=== PATIENT | male | born 1965 | race Caucasian/White ===

== ENCOUNTER 2021-07-24 18:46 | Emergency (ER) | payer OTHER, SELFPAY ==
[2021-07-24 18:47] VITALS: BP 153/88; PULSE 108; RESP 18; TEMP 35.9; O2SAT 97; BMI 32.9
--- NOTE | 2021-07-24 19:19 | RAD_ITS ---
STUDY: X-RAY - LEFT TIBIA AND FIBULA REASON FOR EXAM: Male, 55 years old. Wound to anterior leg worsened since Tuesday, fracture and surgery in April. TECHNIQUE: 4 view(s) of the tibia and fibula were obtained. COMPARISON: None. FINDINGS: Subacute actively healing fracture of the distal one third tibial shaft and fibula noted. Intramedullary juanito of the tibial shaft noted with interlocking screws. No visualized cortical erosion or bony destruction to suggest osteomyelitis. Mild soft tissue swelling is present around the lower leg. RAD/Tibia & Fibula 2 Views IMPRESSION: Subacute fractures of the tibia and fibula. Electronically Signed: Lex Paige MD at 21:36 EDT , Service support ,
[2021-07-24] MEDS: Cefazolin 1 GM/50 ML BAG IV (19:45)
[2021-07-24 19:49] VITALS: BP 153/88; PULSE 108; RESP 18; TEMP 35.9; O2SAT 97
[2021-07-24 20:00] LABS: Absolute Lymphocyte Count 2.33 X10^3/uL (0.83-4.51); Absolute Neutrophil Count 11.3 X10^3/uL (2.0-7.7); Anion Gap 8 (5-15); BUN 18 mg/dL (7-18); BUN/Creat Ratio 15.8 RATIO (10-20); Basophil# 0.08 X10^3/uL; Basophil% 0.5 % (0-1); Calcium,Total 9.3 mg/dL (8.5-10.1); Chloride 100 mmol/L (98-107); Creatinine, Serum 1.14 mg/dL (0.70-1.30); EST Glomerular Filtration Rate 70 mL/min (>60); Eosinophil# 0.63 X10^3/uL; Eosinophils% 4.1 % (0-5); Est Glom Filt Rate - Afr Amer 85 mL/min (>60); Glucose 164 mg/dL (74-106); Hematocrit 41.7 % (40-54); Hemoglobin 13.4 g/dL (13.0-16.5); Lymphocyte # 2.33 X10^3/ul (0.83-4.51); Lymphocyte % 15.2 % (19-41); Mean Corp Hgb Conc 32.1 g/dL (32-36); Mean Corpuscular Hgb 26.1 pg (27.0-32.0); Mean Corpuscular Volume 81.1 fL (80-94); Mean Platelet Vol. 9.8 fl (6.2-12.0); Monocyte# 0.93 X10^3/uL; Monocyte% 6.1 % (0-10); NRBC Flagged by Analyzer 0 % (0-5); Neutrophil # 11.27 X10^3/uL (2.7-7.7); Neutrophil % 73.6 % (47-70); Platelet Count 353 K/mm3 (150-450); Potassium 3.4 mmol/L (3.5-5.1); RBC Distribution Width CV 12.9 % (11.6-14.6); RBC Distribution Width SD 38.2 fl (35.1-43.9); Red Blood Count 5.14 M/mm3 (4.6-6.2); Sodium Level 138 mmol/L (136-145); White Blood Count 15.3 K/mm3 (4.4-11.0)
--- NOTE | 2021-07-24 20:19 | EX.ED.DYSGE1 ---
HPI History of Present Illness Chief Complaint: Wound Narrative Narrative: Presents here with daughter for evaluation for wound check left lower leg. Open compound fracture this past April falling off a ladder, surgery by Dr. Patel in [employer]. His last follow-up with July 05 of this month. It was healing appropriately with scabbing, reported however he was empirically placed on a 10-day course of doxycycline during that visit. He finished this. Patient reports the open wound was allowed to heal by secondary intention. There was swelling around the tissue with therapy where it was massaged a week ago. Reports since then increasing blisters there has been serosanguineous drainage in the wound regions. Daughter had pictures of the wounds over the past week. 2 days ago reviewed. To have significant erythema ecchymosis which compared to today improving. There is a blister on the bottom. They followed up with the PCP a few days ago, referred to [facility] however told would not bill get in until late next week. Patient prediabetic. Denies fevers. Denies exudative drainage. Reported pictures were texted to the physician today and was told to come to the hospital. [facility] Medical History HLD (hyperlipidemia) HTN (hypertension) Home Medications amlodipine 07/24/21 [History Last Taken Unknown] amoxicillin-pot clavulanate [Augmentin] 1 tab PO BID #20 tab 07/24/21 [Rx Last Taken Unknown] aspirin 325 mg PO DAILY 07/24/21 [History Last Taken Unknown] doxycycline hyclate 100 mg PO BID 07/24/21 [History Last Taken Unknown] naproxen sodium [Aleve] 440 mg PO BID 07/24/21 [History Last Taken Unknown] oxycodone 5 mg PO Q6H PRN 3 Days #12 tab 07/24/21 [Rx Last Taken Unknown] rosuvastatin 07/24/21 [History Last Taken Unknown] triamterene-hydrochlorothiazid 1 tab PO DAILY 07/24/21 [History Last Taken Unknown] Allergy/AdvReac Type Severity Reaction Status Date / Time acetaminophen [From Percocet] AdvReac Other Verified 07/24/21 19:23 oxycodone [From Percocet] AdvReac Other Verified 07/24/21 19:23 Surgical History History of cholecystectomy History of fusion of cervical spine History of meniscectomy of left knee History of meniscectomy of right knee Social History Smoking Status: Never smoker ROS ROS ED Constitutional Constitutional ED: Denies chills, fever(s) or sweats Eyes Eyes: Denies change in vision ENT ENT ED: Denies dysphagia or sore throat Cardiovascular Cardiovascular: Denies chest pain, leg edema, palpitations or racing heartbeat Respiratory/Chest Respiratory/Chest: Denies cough, dyspnea or dyspnea on exertion Gastrointestinal Gastrointestinal: Denies abdominal pain, diarrhea, nausea or vomiting Genitourinary Genitourinary ED: Denies dysuria, hematuria or urinary frequency Musculoskeletal Musculoskeletal: Denies back pain, extremity pain or neck pain Integumentary Reports other Details: Wound left lower leg ; Denies rash or wounds Neurologic Neurologic: Denies headache(s), paresthesias or weakness EXAM Physical Exam Const Vital Signs: 07/24/21 18:47 07/24/21 19:49 07/24/21 20:49 Temperature 96.6 F L 96.6 F L Temperature Source Temporal Temporal Pulse Rate 108 H 108 H 96 Respiratory Rate 18 18 Blood Pressure 153/88 H 153/88 H 132/80 H Blood Pressure Mean 109 109 Pulse Ox 97 97 Oxygen Delivery Method Room Air Room Air Positive well nourished and well developed General Appearance ED: well developed and NAD HEENT Reports moist mucous membranes normocephalic and atraumatic Eyes PERRL, EOMs intact bilaterally and conjunctivae normal General Eye ED: Yes normal appearance of both eyes Neck no lymphadenopathy and supple General: Negative for tenderness Chest Wall Chest: Negative for tenderness Resp normal respiratory effort and normal air movement Effort and Inspection: symmetric chest movement; Negative for respiratory distress Cardio regular rate, regular rhythm and no murmurs Peripheral Pulses: pulses 2+ throughout GI normal to inspection, nondistended, normoactive bowel sounds and non-tender Palpation: Negative for guarding or rebound tenderness present Back/Spine no CVA tenderness and no thoracic nor lumbar tenderness Extremity normal to inspection General Extremety ED: Negative for edema or tenderness General Extremity: Negative for edema Neuro oriented x3 and no sensory deficits noted Sensorium / Orientation: awake and alert Skin Skin Narrative: Left lower extremity: Distal medial aspect of the leg, palm-sized erythema ecchymosis in the middle, there were 2 circular open wounds on top 1 was 1.5 cm the other is 1 cm with serosanguineous drainage. There is a 2 cm close blistering on the lower aspect of the wound. There was no exudative drainage. There is no streaking. Nontender to palpation. There is no crepitus. MDM MDM MDM Narrative Medical decision making narrative: Patient nontoxic appears to have an reinfection that is actually better than from pictures 2 days ago. I did check labs white count returned at 15. He was given IV Ancef. Without exudates lower suspicion for MRSA. Erythema was outlined. Wound was cleansed and dressed with Xeroform by nursing. Discussed wound care with patient and daughter. Given prescription for Augmentin for coverage. He will follow-up with wound care and his physicians. Return precautions discussed. All questions were answered. Lab Data Attestation: I reviewed the patient's lab results. Labs: Laboratory Results - last 24 hr 07/24/21 07/24/21 19:38 19:38 WBC 15.3 H RBC 5.14 Hgb 13.4 Hct 41.7 MCV 81.1 MCH 26.1 L MCHC 32.1 RDW Std Deviation 38.2 RDW Coeff of Darren 12.9 Plt Count 353 MPV 9.8 Immature Gran % (Auto) 0.500 Neut % (Auto) 73.6 H Lymph % (Auto) 15.2 L [place] % (Auto) 6.1 Eos % (Auto) 4.1 Baso % (Auto) 0.5 Absolute Neuts (auto) 11.3 H Absolute Lymphs (auto) 2.33 Nucleated RBC % 0 Sodium 138 Potassium 3.4 L Chloride 100 Carbon Dioxide 30.0 Anion Gap 8 BUN 18 Creatinine 1.14 Estim Creat Clear Calc 90.10 Est GFR (MDRD) Af Amer 85 Est GFR (MDRD) Non-Af 70 BUN/Creatinine Ratio 15.8 Glucose 164 H Calcium 9.3 Radiography Chest X-Ray - ED: Read by ED Physician and Read by Radiologist Diagnostic Testing: Clinical Impression(s) from Imaging Studies Tibia/Fibula X-Ray 07/24/21 19:19 IMPRESSION: Subacute fractures of the tibia and fibula. Electronically Signed: Lex Paige MD at 21:36 EDT , Service support , Discharge Plan Triage Chief Complaint: Wound ED Provider: David Narvaez Dx/Rx/DC Orders Clinical Impression: Postoperative wound infection, Cellulitis of left leg Instructions: ED Cellulitis, ED Wound Infection after surgery Prescriptions: New amoxicillin-pot clavulanate [Augmentin] 875-125 mg tablet 1 tab PO BID Qty: 20 RF: 0 oxycodone 5 mg tablet 5 mg PO Q6H PRN (Reason: pain) 3 Days Qty: 12 RF: 0 No Action aspirin 325 mg Tablet 325 mg PO DAILY RF: 0 triamterene-hydrochlorothiazid 75-50 mg Tablet 1 tab PO DAILY RF: 0 doxycycline hyclate 100 mg Tablet 100 mg PO BID RF: 0 naproxen sodium [Aleve] 220 mg Capsule 440 mg PO BID RF: 0 amlodipine RF: 0 rosuvastatin RF: 0 Primary Care Provider: Pelon Linda Referrals: Pelon Linda MD [Primary Care Provider] - Activity Restrictions/Additional Instructions: Take antibiotic as prescribed. Follow-up with [facility] . Disposition Disposition: Home, Self Care Discharge Date/Time: 07/24/21 20:54
[2021-07-24] MEDS: oxyCODONE 5 MG Tablet PO (20:45)
[2021-07-24 20:49] VITALS: BP 132/80; PULSE 96
== END 2021-07-24 20:54 | disposition home or self-care (01) ==
PROVIDERS: Emergency Provider Emergency Medicine; PCP Family Medicine
DX: T81.49XA Infection following a procedure, other surgical site, initial encounter (principal); L03.116 Cellulitis of left lower limb; I10 Essential (primary) hypertension; E78.5 Hyperlipidemia, unspecified; Z79.82 Long term (current) use of aspirin; Z79.899 Other long term (current) drug therapy
CPT/HCPCS: 73590; 80048; 85025; 96365; 99284; J7050; A4216

== ENCOUNTER 2021-07-29 07:55 | Outpatient (RCR) | payer OTHER, SELFPAY ==
[2021-07-29 08:13] VITALS: BP 153/78; PULSE 106; TEMP 35.7
--- NOTE | 2021-07-29 10:14 | HP.PCM_ITS ---
History of Present Illness Date of Service: 07/29/21 Chief Complaint: Follow-up on left lower leg open wounds History of Wound: 55-year-old black male who approximately on April 03 fell down a ladder trimming trees and had a compound fracture to the left lower leg. Patient had surgery and a juanito was placed from knee to ankle area. Patient appeared to be healing well had second-degree healing on the lower part of his leg the rest of the leg was closed with juan. Was in physical therapy and was receiving massage therapy to get rid of the edema and keloiding of some of his wounds and went home 1 day and his skin started to open and has now developed like 3 bulbar type protruding mass of skin and the area is very red and warm. Went to the emergency room after seeing his primary care doctor and they placed him on a doxycycline drip and send him home on amoxicillin. Patient then was then referred to wound center for further treatment. The surgeon states that there was a lot of debris in his leg of wood and sticks and grass. That he thought he got most of it out but, it could be foreign bodies trying to work their way out. [facility] Medical History (Reviewed 07/29/21 @ 10:18 by Kami Fletcher [employer], [employer]) HLD (hyperlipidemia) HTN (hypertension) Home Medications amlodipine 07/24/21 [History Last Taken Unknown] amoxicillin-pot clavulanate [Augmentin] 1 tab PO BID #20 tab 07/24/21 [Rx Last Taken Unknown] aspirin 325 mg PO DAILY 07/24/21 [History Last Taken Unknown] doxycycline hyclate 100 mg PO BID 07/24/21 [History Last Taken Unknown] naproxen sodium [Aleve] 440 mg PO BID 07/24/21 [History Last Taken Unknown] rosuvastatin 07/24/21 [History Last Taken Unknown] triamterene-hydrochlorothiazid 1 tab PO DAILY 07/24/21 [History Last Taken Unknown] Allergy/AdvReac Type Severity Reaction Status Date / Time acetaminophen [From Percocet] AdvReac Other Verified 07/24/21 19:23 oxycodone [From Percocet] AdvReac Other Verified 07/24/21 19:23 Surgical History History of cholecystectomy History of fusion of cervical spine History of meniscectomy of left knee History of meniscectomy of right knee Social History Smoking Status: Never smoker ROS Integumentary Integumentary: Reports non-healing lesions, rash, skin pain, skin swelling and wounds Vital Signs Vital Signs Vital Signs: 07/29/21 08:13 Temperature 96.2 F L Temperature Source Temporal Pulse Rate 106 H Blood Pressure 153/78 H Blood Pressure Mean 103 Blood Pressure Source Monitor Blood Pressure Position Sitting Blood Pressure Location Left Arm Physical Exam Const oriented x3 General Appearance: cooperative Exam Limitations: no limitations HEENT normocephalic Head and Scalp: normal to inspection Face and Sinus: normal facial exam Nose: external nose normal General Ear: hearing grossly impaired External Ear: external ears normal Mouth: oral and palatal mucosa normal Eyes PERRL General Eye: normal appearance of both eyes Neck full ROM General: normal visual inspection Resp normal respiratory effort Effort and Inspection: able to speak in complete sentences Auscultation: clear to auscultation bilaterally Cardio regular rate and regular rhythm Palpation: normal PMI Rate: regular rate Rhythm: regular rhythm GI Auscultation: normoactive bowel sounds Palpation: soft and no hepatosplenomegaly Extremity normal to inspection General Extremity: normal exam except as noted Skin General Skin Exam: erythema and hypertrophy Rashes: rashes noted Wounds: wounds noted Wound Narrative: Bulbous protrusions of subcutaneous skin protruding out 3 di fferent areas Neuro oriented x3 Psych Appearance: grossly normal Speech: normal speech Thought Content: normal thought content Judgement: judgement good Debridement Note Debridement Note Wound debrided: Left lower leg cluster Laterality: Left Type of Debridement: Excisional debridement Anesthesia Used: 5% Lidocaine Gel Depth: in the subcutaneous layer Percentage of wound debrided: 100 Instrument Used: 7mm curette and - (Scissors) Tissue Removed: Devitalized tissue fibrin Severity: Fat Layer Exposed Amount of bleeding with debridement: Mild Bleeding Controlled with: Compression and gauze Patient tolerated procedure: Patient tolerated procedure well Post-Debridement Measurements and Additional Note: Post-Debridement Measurements/Treatment WC - Nurse 1 - General Ulcer Assessment Start: 07/29/21 08:12 Freq: Status: Active Protocol: KRISTI Activity Type Activity Date Activity User E-Sign Co-Sign Detail Recorded Client Recorded Date Recorded By Document 07/29/21 08:13 ARMANDO [id number] 07/29/21 08:29 07/29/21 08:13 - Today's Visit Information Type of service Initial Visit Arrival Mode Ambulatory, Crutches Patient Identification Verified (Name & Yes ) Vital Signs Temperature (97.8 F-99.1 F) 96.2 F L Temperature Source Temporal Pulse Rate (60-100) 106 H Pulse Location Monitor Blood Pressure (90/60-120/80) 153/78 H Blood Pressure Mean 103 Source Monitor Position Sitting Blood Pressure Location Left Arm History Since Last Visit- (Skip if this is Patient's initial visit) Have you changed medications since your No last visit? Any new allergies or adverse reactions No Had a fall/change in ADL's that may No increase risk of falls Signs or symptoms of abuse and/or No neglect since last visit Have you been in the hospital since your No last visit? Has dressing in place as prescribed No Has compression in place as prescribed N/A Has offloadiing in place as prescribed N/A Experienced any changes in pain level or No management Left Footwear Regular Shoe Right Footwear Regular Shoe Pain Scale: 0-10 Numeric Is Patient Pain Free? Yes - Nurse 1 - General Ulcer Measurement Start: 07/29/21 08:12 Freq: Status: Active Protocol: Activity Type Activity Date Activity User E-Sign Co-Sign Detail Recorded Client Recorded Date Recorded By Document 07/29/21 08:13 ARMANDO [id number] 07/29/21 08:29 07/29/21 08:13 Wound Center Nurse 1 #1 Left Lower medial extremity cluster -Current Size (cm) - Length 7 -Current Size (cm) - Width 4.8 -Current Size (cm) - Depth 0.1 -Total Square Cm 33.6 -Exudate Amt Medium -Exudate Type Serosanguineous -Wound Margin Distinct, Outline Attached -Granulation Amt Medium (34-66%) -Granulation Quality Red -Necrosis Amt Medium (34-66%) -Necrotic Tissue Type Adherent Slough -Texture (Shaina-wound Skin Appearance) Assessed, Localized Edema ,Scarring -Moisture (Shaina-wound Skin Appearance) Assessed, Maceration -Color (Shaina-wound Skin Appearance) No Abnormality, Assessed -Temperature (Shaina-wound Skin No Abnormality Appearance) (Pt Warm) -Tenderness on Palpation (Shaina-wound No Skin Appearance) -Ulcer Cleansing Rinsed/ Irrigated with Saline -Foul Odor after Cleansing No -Anesthetic Used 4% Lidocaine Solution,5% Lidocaine Gel Right Calf (cm) 41 Right Ankle (cm) 24 Left Calf (cm) 41 Left Ankle (cm) 28 - Nurse 2 - General Ulcer CM Notes Start: 07/29/21 08:12 Freq: Status: Active Protocol: Activity Type Activity Date Activity User E-Sign Co-Sign Detail Recorded Client Recorded Date Recorded By Document 07/29/21 08:46 MW [id number] 07/29/21 08:55 MW 07/29/21 08:46 Wound Center Nurse 2 #1 Left Lower medial extremity cluster -Time 08:47 -Correct Patient Yes -Correct Side, Site, Position Yes -Correct Procedure Yes -Procedure Performed Yes -Type of Procedure Debridement -Clinical Debridement Subcutaneous -Tissue Removed Subcutaneous -Post Debridement (cm) - Length 7.3 -Post Debridement (cm) - Width 3.5 -Post Debridement (cm) - Depth 0.2 -Total Square (Post) (cm) 25.55 -Area of Debridement (cm) - Length 7.3 -Area of Debridement (cm) - Width 3.5 -Total Square (Area) (cm) 25.55 -Tunneling No -Undermining/Tunneling No -Circular Undermining No -Wound/Ulcer Outcome Not Healed -Ulcer Cleansing Rinsed/ Irrigated with Saline -Foul Odor after Cleansing No -Bioengineered Tissue No -Bleeding Controlled with Pressure -Offloading No -Treatment Response Procedure Tolerated Well -Debridement - Subq, 1st 20sq cm Yes -Debridement, SubQ, ea addt'l 20sq cm 1 or part thereof Pain Scale: 0-10 Numeric Is Patient Pain Free? Yes Lab / Micro Data Attestation: I reviewed the patient's lab results. Assessment/Plan Assessment/Plan (1) Nonhealing nonsurgical wound: CODE(S): T14.8XXA - Other injury of unspecified body region, initial encounter PLAN: Wash leg with antibacterial soap and apply Fibracol to wound base of the 3 areas cover with Adaptic and gauze and Patricia. Continue to Wong wrap left leg And elevate as much as possible finish antibiotics cultures were obtained will call with results Follow-up in 1 week (2) Postoperative wound infection: CODE(S): T81.49XA - Infection following a procedure, other surgical site, initial encounter (3) Cellulitis of left leg: CODE(S): L03.116 - Cellulitis of left lower limb
== END 2021-08-02 23:59 ==
LOC: WC 07:55
PROVIDERS: PCP Family Medicine; Visit Provider Nurse Practitioner
DX: T81.49XA Infection following a procedure, other surgical site, initial encounter (principal); L03.116 Cellulitis of left lower limb; Y83.8 Other surgical procedures as the cause of abnormal reaction of the patient, or of later complication, without mention of misadventure at the time of the procedure; E78.5 Hyperlipidemia, unspecified; I10 Essential (primary) hypertension; Z79.899 Other long term (current) drug therapy; Z79.82 Long term (current) use of aspirin
CPT/HCPCS: 11042; 11045; 87070; 87075; 87077; 87186; 87205; 99203; G0463

== ENCOUNTER 2021-08-26 08:00 | Outpatient (RCR) | payer OTHER, SELFPAY ==
[2021-08-03 00:34] VITALS: BP 153/78; PULSE 106; TEMP 35.7
[2021-08-05 08:06] VITALS: BP 151/85; PULSE 113; TEMP 36.2
--- NOTE | 2021-08-05 08:43 | PN.PCM_ITS ---
History of Present Illness Date of Service: 08/05/21 Chief Complaint: Follow-up on left lower leg open wounds History of Wound: 55-year-old black male who approximately on April 03 fell down a ladder trimming trees and had a compound fracture to the left lower leg. Patient had surgery and a juanito was placed from knee to ankle area. Patient appeared to be healing well had second-degree healing on the lower part of his leg the rest of the leg was closed with juan. Was in physical therapy and was receiving massage therapy to get rid of the edema and keloiding of some of his wounds and went home 1 day and his skin started to open and has now developed like 3 bulbar type protruding mass of skin and the area is very red and warm. Went to the emergency room after seeing his primary care doctor and they placed him on a doxycycline drip and send him home on amoxicillin. Patient then was then referred to wound center for further treatment. The surgeon states that there was a lot of debris in his leg of wood and sticks and grass. That he thought he got most of it out but, it could be foreign bodies trying to work their way out. Progress of Wound: Still has protruding of the wounds of subcutaneous tissue. Improving less hardness of devitalized tissue around the edge of the wound that seems to strangulate. Cultures came back rare we will not treat those patient is done with antibiotic therapy. Subjective Subjective Patient is having less pain and redness around wound areas Objective Data Objective Data Still looks punctuated and protruding of subcutaneous tissue. Debrided devitalized tissue and fibrin from over the areas. No pain with debridement this week. Redness is less around the edges of the wound and surrounding tissue. We will continue using Fibracol plus Vital Signs: Vital Signs Temp Pulse BP 97.2 F L 113 H 151/85 H 08/05/21 08:06 08/05/21 08:06 08/05/21 08:06 Lab / Micro Data Attestation: I reviewed the patient's lab results. Physical Exam Const oriented x3 General Appearance: cooperative Exam Limitations: no limitations HEENT normocephalic Head and Scalp: normal to inspection Face and Sinus: normal facial exam Nose: external nose normal General Ear: hearing grossly impaired External Ear: external ears normal Mouth: oral and palatal mucosa normal Eyes PERRL General Eye: normal appearance of both eyes Neck full ROM General: normal visual inspection Resp normal respiratory effort Effort and Inspection: able to speak in complete sentences Auscultation: clear to auscultation bilaterally Cardio regular rate and regular rhythm Palpation: normal PMI Rate: regular rate Rhythm: regular rhythm GI Auscultation: normoactive bowel sounds Palpation: soft and no hepatosplenomegaly Extremity normal to inspection General Extremity: normal exam except as noted Skin General Skin Exam: erythema and hypertrophy Rashes: rashes noted Wounds: wounds noted Wound Narrative: Bulbous protrusions of subcutaneous skin protruding out 3 different areas Neuro oriented x3 Psych Appearance: grossly normal Speech: normal speech Thought Content: normal thought content Judgement: judgement good Debridement Note Debridement Note Wound debrided: Left lower leg cluster by ankle Type of Debridement: Excisional debridement Anesthesia Used: 5% Lidocaine Gel Depth: Down to and including healthy tissue and in the subcutaneous layer Percentage of wound debrided: 100 Instrument Used: 7mm curette Tissue Removed: Devitalized tissue and fibrin Severity: Fat Layer Exposed Amount of bleeding with debridement: Mild Bleeding Controlled with: Compression and gauze Patient tolerated procedure: Patient tolerated procedure well Post-Debridement Measurements and Additional Note: Post-Debridement Measurements/Treatment - Nurse 1 - General Ulcer Assessment Start: 08/05/21 08:05 Freq: Status: Active Protocol: FERNANDO.YARED Activity Type Activity Date Activity User E-Sign Co-Sign Detail Recorded Client Recorded Date Recorded By Document 08/05/21 08:06 LORENA [id number] 08/05/21 08:09 LORENA 08/05/21 08:06 - Today's Visit Information Type of service Follow-up Visit (Physician/APPRAISAL ANALYST ) Arrival Mode Ambulatory Patient Identification Verified (Name & Yes ) Patient Requires Transmission-Based No Precautions Safety Precautions NA Vital Signs Temperature (97.8 F-99.1 F) 97.2 F L Temperature Source Temporal Pulse Rate (60-100) 113 H Pulse Location Monitor Blood Pressure (90/60-120/80) 151/85 H Blood Pressure Mean (mm Hg) 107 Source Monitor History Since Last Visit- (Skip if this is Patient's initial visit) Have you changed medications since your No last visit? Any new allergies or adverse reactions No Had a fall/change in ADL's that may No increase risk of falls Signs or symptoms of abuse and/or No neglect since last visit Have you been in the hospital since your No last visit? Has dressing in place as prescribed Yes Has compression in place as prescribed Yes Has offloadiing in place as prescribed N/A Experienced any changes in pain level or No management Left Footwear Regular Shoe Right Footwear Regular Shoe WC - Nurse 1 - General Ulcer Measurement Start: 08/05/21 08:05 Freq: Status: Active Protocol: Activity Type Activity Date Activity User E-Sign Co-Sign Detail Recorded Client Recorded Date Recorded By Document 08/05/21 08:06 [place] [id number] 08/05/21 08:09 AK Document 08/05/21 08:11 AK [id number] 08/05/21 08:11 AK 08/05/21 08/05/21 08:06 08:11 Wound Center Nurse 1 #1 Left Lower medial extremity cluster -Combined with other wound No -Current Size (cm) - Length 8.2 -Current Size (cm) - Width 1.3 -Current Size (cm) - Depth 0.1 -Total Square Cm 10.66 -Photo Taken No -Epithelialization None Present -Tunneling No -Undermining/Tunneling No -Circular Undermining No -Classification - Thickness Partial Thickness -Exudate Amt Medium -Exudate Type Serosanguineous -Wound Margin Distinct, Outline Attached -Granulation Amt Medium (34-66%) -Granulation Quality Red -Slough/Fibrin Yes -Necrosis Amt Medium (34-66%) -Necrotic Tissue Type Adherent Slough -Structure Exposed N/A -Texture (Shaina-wound Skin Appearance) Assessed,Callus -Moisture (Shaina-wound Skin Appearance) Assessed, Maceration -Color (Shaina-wound Skin Appearance) Assessed -Tenderness on Palpation (Shaina-wound No Skin Appearance) -Ulcer Cleansing Rinsed/ Irrigated with Saline -Foul Odor after Cleansing No -Anesthetic Used 4% Lidocaine Solution Left Calf (cm) 41 Left Ankle (cm) 27.5 WC - Nurse 2 - General Ulcer CM Notes Start: 08/05/21 08:05 Freq: Status: Active Protocol: Activity Type Activity Date Activity User E-Sign Co-Sign Detail Recorded Client Recorded Date Recorded By Document 08/05/21 08:21 LORENA [id number] 08/05/21 08:27 AK 08/05/21 08:21 Wound Center Nurse 2 -Time 08:21 -Correct Patient Yes -Correct Side, Site, Position Yes -Correct Procedure Yes -Procedure Performed Yes -Type of Procedure Debridement -Clinical Debridement Subcutaneous -Tissue Removed Subcutaneous -Post Debridement (cm) - Length 8.0 -Post Debridement (cm) - Width 3.3 -Post Debridement (cm) - Depth 0.2 -Total Square (Post) (cm) 26.40 -Area of Debridement (cm) - Length 8.0 -Area of Debridement (cm) - Width 3.3 -Total Square (Area) (cm) 26.40 -Tunneling No -Undermining/Tunneling No -Circular Undermining No -Wound/Ulcer Outcome Not Healed -Ulcer Cleansing Rinsed/ Irrigated with Saline -Foul Odor after Cleansing No -Bioengineered Tissue No -Bleeding Controlled with Pressure -Offloading No -Treatment Response Procedure Tolerated Well -Debridement - Subq, 1st 20sq cm Yes -Debridement, SubQ, ea addt'l 20sq cm 1 or part thereof Pain Scale: 0-10 Numeric Is Patient Pain Free? Yes WC - Nurse 3 - General Ulcer D/C NN Start: 08/05/21 08:05 Freq: Status: Active Protocol: Activity Type Activity Date Activity User E-Sign Co-Sign Detail Recorded Client Recorded Date Recorded By Document 08/05/21 08:35 [place] [id number] 08/05/21 08:37 AK Document 08/05/21 08:37 AK [id number] 08/05/21 08:38 AK 08/05/21 08/05/21 08:35 08:37 Wound Care Nurse 3 #1 Left Lower medial extremity cluster -Ulcer Cleansing Rinsed/ Irrigated with Saline -Foul Odor after Cleansing No -Negative Pressure Wound Therapy N/A -Primary Dressing Applied Fibracol Plus 4x4 -Other Dressing abd -Primary Dressing Covered/Secured with Dry Gauze, Secured with Tape -Fibracol Plus 4x4 1 Left -Lotion applied to leg before No compression wrap -Compression Wrap Wong Wrap -Stockings No WC - Visit Discharge Discharge Condition Stable Ambulatory Status Ambulatory Transportation Private Auto Accompanied by DAUGHTER Medication Reconcilliation completed & No provided to patient/care provider Clinical Summary of Care Provided Yes Assessment/Plan Assessment/Plan (1) Nonhealing nonsurgical wound: CODE(S): T14.8XXA - Other injury of unspecified body region, initial encounter PLAN: Wash leg with antibacterial soap and apply Fibracol to wound base of the 3 areas cover with Adaptic and gauze and Patricia. Continue to Wong wrap left leg And elevate as much as possible finish antibiotics cultures were obtained will call with results Follow-up in 2 week (2) Postoperative wound infection: CODE(S): T81.49XA - Infection following a procedure, other surgical site, initial encounter (3) Cellulitis of left leg: CODE(S): L03.116 - Cellulitis of left lower limb
[2021-08-19 08:02] VITALS: RESP 16; TEMP 35.9
--- NOTE | 2021-08-19 08:54 | PCM.WC.PN ---
History of Present Illness Date of Service: 08/19/21 Chief Complaint: Follow-up on left lower leg open wounds History of Wound: 55-year-old black male who approximately on April 03 fell down a ladder trimming trees and had a compound fracture to the left lower leg. Patient had surgery and a juanito was placed from knee to ankle area. Patient appeared to be healing well had second-degree healing on the lower part of his leg the rest of the leg was closed with juan. Was in physical therapy and was receiving massage therapy to get rid of the edema and keloiding of some of his wounds and went home 1 day and his skin started to open and has now developed like 3 bulbar type protruding mass of skin and the area is very red and warm. Went to the emergency room after seeing his primary care doctor and they placed him on a doxycycline drip and send him home on amoxicillin. Patient then was then referred to wound center for further treatment. The surgeon states that there was a lot of debris in his leg of wood and sticks and grass. That he thought he got most of it out but, it could be foreign bodies trying to work their way out. Progress of Wound: 3 areas of protruding in the cluster the superior and the inferior are starting to close and heal better. The middle type puncture wound is still protruding did hit him again with nitrous sticks to back off the extra tissue I discussed with him compression is his best friend for getting these to heal faster so he has been using Fibracol which seems to be working well the redness is gone down its more zone dent where the 3 areas are more looks like irritation than anything else. He states the pain is less and has been walking on it and going to therapy. Subjective Subjective He is questioning the middle one that is protruding more but it is really not it looks better the wound is getting smaller the 2 smaller wound areas are healing faster than they center wound but I told him he still has to use compression. Objective Data Objective Data No sign of infection the 3 areas are improving since last seen use nitro stick to back off the extra skin again for hyper granulation we will continue same treatment and follow-up in 1 week Vital Signs: Vital Signs Temp Pulse Resp BP 96.7 F L 113 H 16 151/85 H 08/19/21 08:02 08/05/21 08:06 08/19/21 08:02 08/05/21 08:06 Oxygen Delivery Method Room Air Lab / Micro Data Attestation: I reviewed the patient's lab results. Physical Exam Const oriented x3 General Appearance: cooperative Exam Limitations: no limitations HEENT normocephalic Head and Scalp: normal to inspection Face and Sinus: normal facial exam Nose: external nose normal General Ear: hearing grossly impaired External Ear: external ears normal Mouth: oral and palatal mucosa normal Eyes PERRL General Eye: normal appearance of both eyes Neck full ROM General: normal visual inspection Resp normal respiratory effort Effort and Inspection: able to speak in complete sentences Auscultation: clear to auscultation bilaterally Cardio regular rate and regular rhythm Palpation: normal PMI Rate: regular rate Rhythm: regular rhythm GI Auscultation: normoactive bowel sounds Palpation: soft and no hepatosplenomegaly Extremity normal to inspection General Extremity: normal exam except as noted Skin General Skin Exam: erythema and hypertrophy Rashes: rashes noted Wounds: wounds noted Wound Narrative: Bulbous protrusions of subcutaneous skin protruding out 3 different areas Neuro oriented x3 Psych Appearance: grossly normal Speech: normal speech Thought Content: normal thought content Judgement: judgement good Debridement Note Debridement Note Wound debrided: Left medial cluster Type of Debridement: Excisional debridement Anesthesia Used: 5% Lidocaine Gel Depth: Down to and including healthy tissue and in the subcutaneous layer Percentage of wound debrided: 100 Instrument Used: 5mm curette Tissue Removed: Fibrin and some devitalized tissue Severity: Fat Layer Exposed Amount of bleeding with debridement: None Bleeding Controlled with: Compression and gauze Patient tolerated procedure: Patient tolerated procedure well Post-Debridement Measurements and Additional Note: Post-Debridement Measurements/Treatment - Nurse 1 - General Ulcer Assessment Start: 08/05/21 08:05 Freq: Status: Active Protocol: FERNANDO.YARED Activity Type Activity Date Activity User E-Sign Co-Sign Detail Recorded Client Recorded Date Recorded By Document 08/05/21 08:06 [place] [id number] 08/05/21 08:09 [place] Document 08/19/21 08:02 [facility] [id number] 08/19/21 08:06 [facility] 08/05/21 08/19/21 08:06 08:02 - Today's Visit Information Type of service Follow-up Visit Follow-up Visit (Physician/HUMAN RESOURCES ASSISTANT MANAGER (Physician/HUMAN RESOURCES ASSISTANT MANAGER ) ) Arrival Mode Ambulatory Ambulatory Transfer Assistance None Patient Identification Verified (Name & Yes Yes ) Patient Requires Transmission-Based No No Precautions Safety Precautions NA Vital Signs Temperature (97.8 F-99.1 F) 97.2 F L 96.7 F L Temperature Source Temporal Temporal Pulse Rate (60-100) 113 H Pulse Location Monitor Monitor Respiratory Rate (12-18) 16 Respiratory rate source Observation Oxygen Delivery Method Room Air Blood Pressure (90/60-120/80) 151/85 H Blood Pressure Mean (mm Hg) 107 Source Monitor Monitor Position Sitting Blood Pressure Location Left Arm History Since Last Visit- (Skip if this is Patient's initial visit) Have you changed medications since your No No last visit? Any new allergies or adverse reactions No No Had a fall/change in ADL's that may No No increase risk of falls Signs or symptoms of abuse and/or No No neglect since last visit Have you been in the hospital since your No No last visit? Has dressing in place as prescribed Yes Yes Has compression in place as prescribed Yes Yes Has offloadiing in place as prescribed N/A N/A Experienced any changes in pain level or No No management Left Footwear Regular Shoe Regular Shoe Right Footwear Regular Shoe Regular Shoe Pain Scale: 0-10 Numeric Is Patient Pain Free? Yes WC - Nurse 1 - General Ulcer Measurement Start: 08/05/21 08:05 Freq: Status: Active Protocol: Activity Type Activity Date Activity User E-Sign Co-Sign Detail Recorded Client Recorded Date Recorded By Document 08/05/21 08:06 [place] [id number] 08/05/21 08:09 [place] Document 08/05/21 08:11 [place] [id number] 08/05/21 08:11 [place] Document 08/19/21 08:02 [facility] [id number] 08/19/21 08:06 [facility] 08/05/21 08/05/21 08/19/21 08:06 08:11 08:02 Wound Center Nurse 1 #1 Left Lower medial extremity cluster -Combined with other wound No No -Current Size (cm) - Length 8.2 7.5 -Current Size (cm) - Width 1.3 3.4 -Current Size (cm) - Depth 0.1 0.1 -Total Square Cm 10.66 25.50 -Photo Taken No No -Epithelialization None Present None Present -Tunneling No No -Undermining/Tunneling No No -Circular Undermining No No -Classification - Thickness Partial Thickness -Exudate Amt Medium Medium -Exudate Type Serosanguineous Serosanguineous -Wound Margin Distinct, Distinct, Outline Outline Attached Attached -Granulation Amt Medium (34-66%) Medium (34-66%) -Granulation Quality Red Hyper- granulation,Red -Slough/Fibrin Yes Yes -Necrosis Amt Medium (34-66%) Medium (34-66%) -Necrotic Tissue Type Adherent Slough Adherent Slough -Structure Exposed N/A -Texture (Shaina-wound Skin Appearance) Assessed,Callus Assessed, Scarring -Moisture (Shaina-wound Skin Appearance) Assessed, Assessed Maceration -Color (Shaina-wound Skin Appearance) Assessed Assessed -Temperature (Shaina-wound Skin No Abnormality Appearance) (Pt Warm) -Tenderness on Palpation (Shaina-wound No No Skin Appearance) -Ulcer Cleansing Rinsed/ Rinsed/ Irrigated with Irrigated with Saline Saline -Foul Odor after Cleansing No No -Anesthetic Used 4% Lidocaine 5% Lidocaine Solution Gel Lower Limb Edema Present Yes Left Calf (cm) 41 37.7 Left Ankle (cm) 27.5 27 - Nurse 2 - General Ulcer CM Notes Start: 08/05/21 08:05 Freq: Status: Active Protocol: Activity Type Activity Date Activity User E-Sign Co-Sign Detail Recorded Client Recorded Date Recorded By Document 08/05/21 08:21 [place] [id number] 08/05/21 08:27 AK Document 08/19/21 08:34 MW [id number] 08/19/21 08:37 MW 08/05/21 08/19/21 08:21 08:34 Wound Center Nurse 2 #1 Left Lower medial extremity cluster -Time 08:21 08:34 -Correct Patient Yes Yes -Correct Side, Site, Position Yes Yes -Correct Procedure Yes Yes -Procedure Performed Yes Yes -Type of Procedure Debridement Debridement -Clinical Debridement Subcutaneous Subcutaneous -Tissue Removed Subcutaneous Subcutaneous -Post Debridement (cm) - Length 8.0 7.1 -Post Debridement (cm) - Width 3.3 4.2 -Post Debridement (cm) - Depth 0.2 0.1 -Total Square (Post) (cm) 26.40 29.82 -Area of Debridement (cm) - Length 8.0 7.1 -Area of Debridement (cm) - Width 3.3 4.2 -Total Square (Area) (cm) 26.40 29.82 -Tunneling No No -Undermining/Tunneling No No -Circular Undermining No No -Wound/Ulcer Outcome Not Healed Not Healed -Ulcer Cleansing Rinsed/ Rinsed/ Irrigated with Irrigated with Saline Saline -Foul Odor after Cleansing No No -Bioengineered Tissue No No -Bleeding Controlled with Pressure Pressure,Silver Nitrate -Offloading No -Treatment Response Procedure Tolerated Well -Debridement - Subq, 1st 20sq cm Yes Yes -Debridement, SubQ, ea addt'l 20sq cm 1 1 or part thereof Pain Scale: 0-10 Numeric Is Patient Pain Free? Yes Yes - Nurse 3 - General Ulcer D/C NN Start: 08/05/21 08:05 Freq: Status: Active Protocol: Activity Type Activity Date Activity User E-Sign Co-Sign Detail Recorded Client Recorded Date Recorded By Document 08/05/21 08:35 [place] [id number] 08/05/21 08:37 [place] Document 08/05/21 08:37 [place] [id number] 08/05/21 08:38 [place] Document 08/19/21 08:46 [facility] [id number] 08/19/21 08:48 [facility] 08/05/21 08/05/21 08/19/21 08:35 08:37 08:46 Wound Care Nurse 3 #1 Left Lower medial extremity cluster -Ulcer Cleansing Rinsed/ Irrigated with Saline -Foul Odor after Cleansing No -Negative Pressure Wound Therapy N/A -Primary Dressing Applied Fibracol Plus Fibracol Plus 4x4 4x4 -Other Dressing abd fibracol sent w / pt; dry drsg only today -Primary Dressing Covered/Secured with Dry Gauze, Dry Gauze & Secured with Roll Gauze, Tape Secured with Tape,Other -Other Covering abd -Fibracol Plus 4x4 1 1 Left -Lotion applied to leg before No compression wrap -Compression Wrap Wong Wrap Wong Wrap -Stockings No Treatment Response Procedure Tolerated Well Pain Scale: 0-10 Numeric Is Patient Pain Free? Yes WC - Visit Discharge Discharge Condition Stable Stable Ambulatory Status Ambulatory Ambulatory Transportation Private Auto Private Auto Accompanied by DAUGHTER daughter Medication Reconcilliation completed & No provided to patient/care provider Clinical Summary of Care Provided Yes Assessment/Plan Assessment/Plan (1) Nonhealing nonsurgical wound: CODE(S): T14.8XXA - Other injury of unspecified body region, initial encounter PLAN: Wash leg with antibacterial soap and apply Fibracol to wound base of the 3 areas cover with Adaptic and gauze and Patricia. Continue to Wong wrap left leg very important Follow-up in 1week (2) Postoperative wound infection: CODE(S): T81.49XA - Infection following a procedure, other surgical site, initial encounter (3) Cellulitis of left leg: CODE(S): L03.116 - Cellulitis of left lower limb PLAN: Compression to left lower leg
[2021-08-26 08:10] VITALS: BP 139/75; PULSE 95; RESP 16; TEMP 36
--- NOTE | 2021-08-26 10:05 | PN.PCM_ITS ---
History of Present Illness Date of Service: 08/26/21 Chief Complaint: Follow-up on left lower leg open wounds History of Wound: 55-year-old black male who approximately on April 03 fell down a ladder trimming trees and had a compound fracture to the left lower leg. Patient had surgery and a juanito was placed from knee to ankle area. Patient appeared to be healing well had second-degree healing on the lower part of his leg the rest of the leg was closed with juan. Was in physical therapy and was receiving massage therapy to get rid of the edema and keloiding of some of his wounds and went home 1 day and his skin started to open and has now developed like 3 bulbar type protruding mass of skin and the area is very red and warm. Went to the emergency room after seeing his primary care doctor and they placed him on a doxycycline drip and send him home on amoxicillin. Patient then was then referred to wound center for further treatment. The surgeon states that there was a lot of debris in his leg of wood and sticks and grass. That he thought he got most of it out but, it could be foreign bodies trying to work their way out. Progress of Wound: 3 areas of protruding in the cluster the superior and the inferior are starting to close and heal better. The middle type puncture wound is still protruding did hit him again with nitrous sticks to back off the extra tissue I discussed with him compression is his best friend for getting these to heal faster so he has been using Fibracol which seems to be working well the redness is gone down its more zone dent where the 3 areas are more looks like irritation than anything else. He states the pain is less and has been walking on it and going to therapy. Subjective Subjective starting to itch Objective Data Objective Data areas healing well and measures smaller Vital Signs: Vital Signs Temp Pulse Resp BP 96.8 F L 95 16 139/75 H 08/26/21 08:10 08/26/21 08:10 08/26/21 08:10 08/26/21 08:10 Oxygen Delivery Method Room Air Physical Exam Const oriented x3 General Appearance: cooperative Exam Limitations: no limitations HEENT normocephalic Head and Scalp: normal to inspection Face and Sinus: normal facial exam Nose: external nose normal General Ear: hearing grossly impaired External Ear: external ears normal Mouth: oral and palatal mucosa normal Eyes PERRL General Eye: normal appearance of both eyes Neck full ROM General: normal visual inspection Resp normal respiratory effort Effort and Inspection: able to speak in complete sentences Auscultation: clear to auscultation bilaterally Cardio regular rate and regular rhythm Palpation: normal PMI Rate: regular rate Rhythm: regular rhythm GI Auscultation: normoactive bowel sounds Palpation: soft and no hepatosplenomegaly external exam normal Back/Spine Cervical Spine: cervical ROM normal Thoracic Spine / Upper Back: normal to inspection Lumbar Spine / Lower Back: normal to inspection Extremity normal to inspection General Extremity: normal exam except as noted Skin no rashes or lesions noted Neuro oriented x3 Psych Appearance: grossly normal Speech: normal speech Thought Content: normal thought content Judgement: judgement good Debridement Note Debridement Note Wound debrided: L medial ankle cluster Type of Debridement: Excisional debridement Anesthesia Used: 5% Lidocaine Gel Depth: Down to and including healthy tissue Percentage of wound debrided: 100 Instrument Used: 3mm curette Tissue Removed: fibrin Severity: Limited To Skin Breakdown Amount of bleeding with debridement: Mild Bleeding Controlled with: Pressure Patient tolerated procedure: Patient tolerated procedure well Post-Debridement Measurements and Additional Note: Post-Debridement Measurements/Treatment - Nurse 1 - General Ulcer Assessment Start: 08/05/21 08:05 Freq: Status: Active Protocol: KRISTI Activity Type Activity Date Activity User E-Sign Co-Sign Detail Recorded Client Recorded Date Recorded By Document 08/05/21 08:06 UT [id number] 08/05/21 08:09 UT Document 08/19/21 08:02 [facility] [id number] 08/19/21 08:06 [facility] Document 08/26/21 08:10 [facility] [id number] 08/26/21 08:15 [facility] 08/05/21 08/19/21 08/26/21 08:06 08:02 08:10 - Today's Visit Information Type of service Follow-up Visit Follow-up Visit Follow-up Visit (Physician/STUDENT OUTREACH COORDINATOR (Physician/STUDENT OUTREACH COORDINATOR (Physician/STUDENT OUTREACH COORDINATOR ) ) ) Arrival Mode Ambulatory Ambulatory Ambulatory,Cane Transfer Assistance None None Accompanied by daughter Patient Identification Verified (Name & Yes Yes Yes ) Patient Requires Transmission-Based No No No Precautions Safety Precautions NA Vital Signs Temperature (97.8 F-99.1 F) 97.2 F L 96.7 F L 96.8 F L Temperature Source Temporal Temporal Temporal Pulse Rate (60-100) 113 H 95 Pulse Location Monitor Monitor Monitor Respiratory Rate (12-18) 16 16 Respiratory rate source Observation Observation Oxygen Delivery Method Room Air Room Air Blood Pressure (90/60-120/80) 151/85 H 139/75 H Blood Pressure Mean (mm Hg) 107 96 Source Monitor Monitor Monitor Position Sitting Sitting Blood Pressure Location Left Arm Left Arm History Since Last Visit- (Skip if this is Patient's initial visit) Have you changed medications since your No No No last visit? Any new allergies or adverse reactions No No No Had a fall/change in ADL's that may No No No increase risk of falls Signs or symptoms of abuse and/or No No No neglect since last visit Have you been in the hospital since your No No No last visit? Has dressing in place as prescribed Yes Yes Yes Has compression in place as prescribed Yes Yes Yes Has offloadiing in place as prescribed N/A N/A N/A Experienced any changes in pain level or No No No management Left Footwear Regular Shoe Regular Shoe Regular Shoe Right Footwear Regular Shoe Regular Shoe Regular Shoe Pain Scale: 0-10 Numeric Is Patient Pain Free? Yes Yes WC - Nurse 1 - General Ulcer Measurement Start: 08/05/21 08:05 Freq: Status: Active Protocol: Activity Type Activity Date Activity User E-Sign Co-Sign Detail Recorded Client Recorded Date Recorded By Document 08/05/21 08:06 UT [id number] 08/05/21 08:09 AK Document 08/05/21 08:11 AK [id number] 08/05/21 08:11 AK Document 08/19/21 08:02 [facility] [id number] 08/19/21 08:06 [facility] Document 08/26/21 08:10 [facility] [id number] 08/26/21 08:15 [facility] 08/05/21 08/05/21 08/19/21 08:06 08:11 08:02 Wound Center Nurse 1 #1 Left Lower medial extremity cluster -Combined with other wound No No -Current Size (cm) - Length 8.2 7.5 -Current Size (cm) - Width 1.3 3.4 -Current Size (cm) - Depth 0.1 0.1 -Total Square Cm 10.66 25.50 -Photo Taken No No -Epithelialization None Present None Present -Tunneling No No -Undermining/Tunneling No No -Circular Undermining No No -Classification - Thickness Partial Thickness -Exudate Amt Medium Medium -Exudate Type Serosanguineous Serosanguineous -Wound Margin Distinct, Distinct, Outline Outline Attached Attached -Granulation Amt Medium (34-66%) Medium (34-66%) -Granulation Quality Red Hyper- granulation,Red -Slough/Fibrin Yes Yes -Necrosis Amt Medium (34-66%) Medium (34-66%) -Necrotic Tissue Type Adherent Slough Adherent Slough -Structure Exposed N/A -Texture (Shaina-wound Skin Appearance) Assessed,Callus Assessed, Scarring -Moisture (Shaina-wound Skin Appearance) Assessed, Assessed Maceration -Color (Shaina-wound Skin Appearance) Assessed Assessed -Temperature (Shaina-wound Skin No Abnormality Appearance) (Pt Warm) -Tenderness on Palpation (Shaina-wound No No Skin Appearance) -Ulcer Cleansing Rinsed/ Rinsed/ Irrigated with Irrigated with Saline Saline -Foul Odor after Cleansing No No -Anesthetic Used 4% Lidocaine 5% Lidocaine Solution Gel Lower Limb Edema Present Yes Left Calf (cm) 41 37.7 Left Ankle (cm) 27.5 27 08/26/21 08:10 Wound Center Nurse 1 #1 Left Lower medial extremity cluster -Combined with other wound No -Current Size (cm) - Length 5.5 -Current Size (cm) - Width 1.3 -Current Size (cm) - Depth 0.1 -Total Square Cm 7.15 -Photo Taken No -Epithelialization None Present -Tunneling No -Undermining/Tunneling No -Circular Undermining No -Classification - Thickness -Exudate Amt Medium -Exudate Type Serosanguineous -Wound Margin Distinct, Outline Attached -Granulation Amt Medium (34-66%) -Granulation Quality Red -Slough/Fibrin Yes -Necrosis Amt Medium (34-66%) -Necrotic Tissue Type Adherent Slough -Structure Exposed -Texture (Shaina-wound Skin Appearance) Assessed, Scarring -Moisture (Shaina-wound Skin Appearance) Assessed -Color (Shaina-wound Skin Appearance) Assessed -Temperature (Shaina-wound Skin No Abnormality Appearance) (Pt Warm) -Tenderness on Palpation (Shaina-wound No Skin Appearance) -Ulcer Cleansing Rinsed/ Irrigated with Saline -Foul Odor after Cleansing No -Anesthetic Used 4% Lidocaine Solution Lower Limb Edema Present Yes Left Calf (cm) 39.4 Left Ankle (cm) 29.5 WC - Nurse 2 - General Ulcer CM Notes Start: 08/05/21 08:05 Freq: Status: Active Protocol: Activity Type Activity Date Activity User E-Sign Co-Sign Detail Recorded Client Recorded Date Recorded By Document 08/05/21 08:21 AK [id number] 08/05/21 08:27 AK Document 08/19/21 08:34 MW [id number] 08/19/21 08:37 MW Document 08/26/21 08:24 MW [id number] 08/26/21 08:27 MW 08/05/21 08/19/21 08/26/21 08:21 08:34 08:24 Wound Center Nurse 2 #1 Left Lower medial extremity cluster -Time 08:21 08:34 08:25 -Correct Patient Yes Yes Yes -Correct Side, Site, Position Yes Yes Yes -Correct Procedure Yes Yes Yes -Procedure Performed Yes Yes Yes -Type of Procedure Debridement Debridement Incision & Drainage -Clinical Debridement Subcutaneous Subcutaneous Subcutaneous -Tissue Removed Subcutaneous Subcutaneous Subcutaneous -Post Debridement (cm) - Length 8.0 7.1 7.2 -Post Debridement (cm) - Width 3.3 4.2 3.5 -Post Debridement (cm) - Depth 0.2 0.1 0.1 -Total Square (Post) (cm) 26.40 29.82 25.20 -Area of Debridement (cm) - Length 8.0 7.1 7.2 -Area of Debridement (cm) - Width 3.3 4.2 3.5 -Total Square (Area) (cm) 26.40 29.82 25.20 -Tunneling No No No -Undermining/Tunneling No No No -Circular Undermining No No No -Wound/Ulcer Outcome Not Healed Not Healed Not Healed -Ulcer Cleansing Rinsed/ Rinsed/ Rinsed/ Irrigated with Irrigated with Irrigated with Saline Saline Saline -Foul Odor after Cleansing No No No -Bioengineered Tissue No No No -Bleeding Controlled with Pressure Pressure,Silver Pressure,Silver Nitrate Nitrate -Offloading No No -Treatment Response Procedure Procedure Tolerated Well Tolerated Well -Debridement - Subq, 1st 20sq cm Yes Yes Yes -Debridement, SubQ, ea addt'l 20sq cm 1 1 or part thereof Pain Scale: 0-10 Numeric Is Patient Pain Free? Yes Yes Yes WC - Nurse 3 - General Ulcer D/C NN Start: 08/05/21 08:05 Freq: Status: Active Protocol: Activity Type Activity Date Activity User E-Sign Co-Sign Detail Recorded Client Recorded Date Recorded By Document 08/05/21 08:35 AK [id number] 08/05/21 08:37 AK Document 08/05/21 08:37 AK [id number] 08/05/21 08:38 AK Document 08/19/21 08:46 BMF [id number] 08/19/21 08:48 BMF Document 08/26/21 08:32 ML [id number] 08/26/21 08:33 ML 08/05/21 08/05/21 08/19/21 08:35 08:37 08:46 Wound Care Nurse 3 #1 Left Lower medial extremity cluster -Ulcer Cleansing Rinsed/ Irrigated with Saline -Foul Odor after Cleansing No -Negative Pressure Wound Therapy N/A -Primary Dressing Applied Fibracol Plus Fibracol Plus 4x4 4x4 -Other Dressing abd fibracol sent w / pt; dry drsg only today -Primary Dressing Covered/Secured with Dry Gauze, Dry Gauze & Secured with Roll Gauze, Tape Secured with Tape,Other -Other Covering abd -Fibracol Plus 4x4 1 1 Left -Lotion applied to leg before No compression wrap -Compression Wrap Wong Wrap Wong Wrap -Stockings No Treatment Response Procedure Tolerated Well Pain Scale: 0-10 Numeric Is Patient Pain Free? Yes - Visit Discharge Discharge Condition Stable Stable Ambulatory Status Ambulatory Ambulatory Transportation Private Auto Private Auto Accompanied by DAUGHTER daughter Medication Reconcilliation completed & No provided to patient/care provider Clinical Summary of Care Provided Yes 08/26/21 08:32 Wound Care Nurse 3 #1 Left Lower medial extremity cluster -Ulcer Cleansing Rinsed/ Irrigated with Saline -Foul Odor after Cleansing -Negative Pressure Wound Therapy -Primary Dressing Applied Fibracol Plus 4x4 -Other Dressing adaptic,wong -Primary Dressing Covered/Secured with Dry Gauze,Dry Gauze & Roll Gauze,Secured with Tape -Other Covering -Fibracol Plus 4x4 1 Left -Lotion applied to leg before compression wrap -Compression Wrap -Stockings Treatment Response Pain Scale: 0-10 Numeric Is Patient Pain Free? WC - Visit Discharge Discharge Condition Ambulatory Status Transportation Accompanied by Medication Reconcilliation completed & provided to patient/care provider Clinical Summary of Care Provided Assessment/Plan Assessment/Plan (1) Nonhealing nonsurgical wound: CODE(S): T14.8XXA - Other injury of unspecified body region, initial encounter PLAN: Wash leg with antibacterial soap and apply Fibracol to wound base of the 3 areas cover with Adaptic and gauze and Patricia. Continue to Wong wrap left leg very important Follow-up in 1week (2) Postoperative wound infection: CODE(S): T81.49XA - Infection following a procedure, other surgical site, initial encounter (3) Cellulitis of left leg: CODE(S): L03.116 - Cellulitis of left lower limb PLAN: Compression to left lower leg
== END 2021-09-01 23:59 ==
LOC: WC 08:00
PROVIDERS: PCP Family Medicine; Visit Provider Nurse Practitioner
DX: T81.49XA Infection following a procedure, other surgical site, initial encounter (principal); Y83.8 Other surgical procedures as the cause of abnormal reaction of the patient, or of later complication, without mention of misadventure at the time of the procedure; L03.116 Cellulitis of left lower limb; L91.0 Hypertrophic scar
CPT/HCPCS: 11042; 11045

== ENCOUNTER 2021-09-16 08:00 | Outpatient (RCR) | payer OTHER, SELFPAY ==
[2021-09-02 00:36] VITALS: BP 139/75; PULSE 95; RESP 16; TEMP 36
[2021-09-02 08:09] VITALS: RESP 16; TEMP 36
--- NOTE | 2021-09-02 09:19 | PN.PCM_ITS ---
History of Present Illness Date of Service: 09/02/21 Chief Complaint: Follow-up on left lower leg open wounds History of Wound: 55-year-old black male who approximately on April 03 fell down a ladder trimming trees and had a compound fracture to the left lower leg. Patient had surgery and a juanito was placed from knee to ankle area. Patient appeared to be healing well had second-degree healing on the lower part of his leg the rest of the leg was closed with juan. Was in physical therapy and was receiving massage therapy to get rid of the edema and keloiding of some of his wounds and went home 1 day and his skin started to open and has now developed like 3 bulbar type protruding mass of skin and the area is very red and warm. Went to the emergency room after seeing his primary care doctor and they placed him on a doxycycline drip and send him home on amoxicillin. Patient then was then referred to wound center for further treatment. The surgeon states that there was a lot of debris in his leg of wood and sticks and grass. That he thought he got most of it out but, it could be foreign bodies trying to work their way out. Progress of Wound: Apparently every time he receives physical therapy the wound started to open up and protrude more. The bottom inferior wound was had pus coming out. When debrided edges bleeds. He denies pain at this time the skin surrounding the wounds are normal color with no apparent site of infection or swelling. Patient just does not know what to do anymore he had pain in his calf today we will get an ultrasound for blood clot. We also thought maybe we should get an MRI and see if the bone fragment that is loose in his lower leg is starting to come out. In the meantime we will try to contact the orthopedic surgeon and have him take a look and see what he thinks. We also will apply for this skin substitutes for coverage over the wound. Subjective Subjective Patient is not sure what is going on and he is just discouraged that it is not healing properly Objective Data Objective Data The top superior wound is healing very small pinhole but the 2 bottom part of the cluster is still open and protruding tissue that is soft no sign of infection noted. We did obtain cultures today also Vital Signs: Vital Signs Temp Pulse Resp BP 96.8 F L 95 16 139/75 H 09/02/21 08:09 09/02/21 00:36 09/02/21 08:09 09/02/21 00:36 Oxygen Delivery Method Room Air Lab / Micro Data Attestation: I reviewed the patient's lab results. Physical Exam Const oriented x3 General Appearance: cooperative Exam Limitations: no limitations HEENT normocephalic Head and Scalp: normal to inspection Face and Sinus: normal facial exam Nose: external nose normal General Ear: hearing grossly impaired External Ear: external ears normal Mouth: oral and palatal mucosa normal Eyes PERRL General Eye: normal appearance of both eyes Neck full ROM General: normal visual inspection Resp normal respiratory effort Effort and Inspection: able to speak in complete sentences Auscultation: clear to auscultation bilaterally Cardio regular rate and regular rhythm Palpation: normal PMI Rate: regular rate Rhythm: regular rhythm GI Auscultation: normoactive bowel sounds Palpation: soft and no hepatosplenomegaly external exam normal Back/Spine Cervical Spine: cervical ROM normal Thoracic Spine / Upper Back: normal to inspection Lumbar Spine / Lower Back: normal to inspection Extremity normal to inspection General Extremity: normal exam except as noted Skin no rashes or lesions noted Neuro oriented x3 Psych Appearance: grossly normal Speech: normal speech Thought Content: normal thought content Judgement: judgement good Debridement Note Debridement Note Wound debrided: Left medial lower leg cluster Type of Debridement: Excisional debridement Anesthesia Used: 5% Lidocaine Gel Depth: in the subcutaneous layer Percentage of wound debrided: 100 Instrument Used: 5mm curette Tissue Removed: Fibrin Severity: Fat Layer Exposed Amount of bleeding with debridement: Moderate Bleeding Controlled with: Compression and gauze Patient tolerated procedure: Patient tolerated procedure well Post-Debridement Measurements and Additional Note: Post-Debridement Measurements/Treatment - Nurse 1 - General Ulcer Assessment Start: 09/02/21 08:09 Freq: Status: Active Protocol: WC.LOWEXT Activity Type Activity Date Activity User E-Sign Co-Sign Detail Recorded Client Recorded Date Recorded By Document 09/02/21 08:09 [facility] [id number] 09/02/21 08:16 [facility] 09/02/21 08:09 - Today's Visit Information Type of service Follow-up Visit (Physician/PERMACULTURE DESIGNER ) Arrival Mode Ambulatory,Cane Transfer Assistance None Accompanied by daughter Patient Identification Verified (Name & Yes ) Patient Requires Transmission-Based No Precautions Vital Signs Temperature (97.8 F-99.1 F) 96.8 F L Temperature Source Temporal Pulse Location Monitor Respiratory Rate (12-18) 16 Respiratory rate source Observation Oxygen Delivery Method Room Air Source Monitor Position Sitting Blood Pressure Location Left Forearm History Since Last Visit- (Skip if this is Patient's initial visit) Have you changed medications since your No last visit? Any new allergies or adverse reactions No Had a fall/change in ADL's that may No increase risk of falls Signs or symptoms of abuse and/or No neglect since last visit Have you been in the hospital since your No last visit? Has dressing in place as prescribed Yes Has compression in place as prescribed Yes Has offloadiing in place as prescribed N/A Experienced any changes in pain level or No management Left Footwear Regular Shoe Right Footwear Regular Shoe Pain Scale: 0-10 Numeric Is Patient Pain Free? Yes WC - Nurse 1 - General Ulcer Measurement Start: 09/02/21 08:09 Freq: Status: Active Protocol: Activity Type Activity Date Activity User E-Sign Co-Sign Detail Recorded Client Recorded Date Recorded By Document 09/02/21 08:09 [facility] [id number] 09/02/21 08:16 [facility] 09/02/21 08:09 Wound Center Nurse 1 #1 Left Lower medial extremity cluster -Combined with other wound No -Current Size (cm) - Length 7.7 -Current Size (cm) - Width 3 -Current Size (cm) - Depth 0.1 -Total Square Cm 23.1 -Photo Taken No -Epithelialization Small 1-33% -Tunneling No -Undermining/Tunneling No -Circular Undermining No -Exudate Amt Small -Exudate Type Serosanguineous -Wound Margin Distinct, Outline Attached -Granulation Amt Medium (34-66%) -Granulation Quality [place] -Slough/Fibrin Yes -Necrosis Amt Medium (34-66%) -Necrotic Tissue Type Adherent Slough -Texture (Shaina-wound Skin Appearance) Assessed, Scarring -Moisture (Shaina-wound Skin Appearance) Assessed -Color (Shaina-wound Skin Appearance) Assessed -Temperature (Shaina-wound Skin No Abnormality Appearance) (Pt Warm) -Tenderness on Palpation (Shaina-wound No Skin Appearance) -Ulcer Cleansing Rinsed/ Irrigated with Saline -Foul Odor after Cleansing No -Anesthetic Used 5% Lidocaine Gel Lower Limb Edema Present Yes Left Calf (cm) 39.9 Left Ankle (cm) 25.6 WC - Nurse 2 - General Ulcer CM Notes Start: 09/02/21 08:09 Freq: Status: Active Protocol: Activity Type Activity Date Activity User E-Sign Co-Sign Detail Recorded Client Recorded Date Recorded By Document 09/02/21 08:34 MW [id number] 09/02/21 08:42 MW 09/02/21 08:34 Wound Center Nurse 2 #1 Left Lower medial extremity cluster -Time 08:36 -Correct Patient Yes -Correct Side, Site, Position Yes -Correct Procedure Yes -Procedure Performed Yes -Type of Procedure Debridement -Clinical Debridement Subcutaneous -Tissue Removed Subcutaneous -Post Debridement (cm) - Length 7.0 -Post Debridement (cm) - Width 3.3 -Post Debridement (cm) - Depth 0.1 -Total Square (Post) (cm) 23.10 -Area of Debridement (cm) - Length 7.0 -Area of Debridement (cm) - Width 3.3 -Total Square (Area) (cm) 23.10 -Tunneling No -Undermining/Tunneling No -Circular Undermining No -Wound/Ulcer Outcome Not Healed -Ulcer Cleansing Rinsed/ Irrigated with Saline -Foul Odor after Cleansing No -Bioengineered Tissue No -Bleeding Controlled with Pressure -Offloading No -Treatment Response Procedure Tolerated Well -Debridement - Subq, 1st 20sq cm Yes -Debridement, SubQ, ea addt'l 20sq cm 1 or part thereof Pain Scale: 0-10 Numeric Is Patient Pain Free? Yes - Nurse 3 - General Ulcer D/C NN Start: 09/02/21 08:09 Freq: Status: Active Protocol: Activity Type Activity Date Activity User E-Sign Co-Sign Detail Recorded Client Recorded Date Recorded By Document 09/02/21 09:06 ARMANDO [id number] 09/02/21 09:07 ARMANDO 09/02/21 09:06 Wound Care Nurse 3 #1 Left Lower medial extremity cluster -Primary Dressing Applied Fibracol Plus 4x4,NonAdherent Contact Layer -Primary Dressing Covered/Secured with Dry Gauze,Dry Gauze & Roll Gauze,Secured with Tape -Fibracol Plus 4x4 1 Left -Compression Wrap Wong Wrap Pain Scale: 0-10 Numeric Is Patient Pain Free? Yes WC - Visit Discharge Discharge Condition Stable Ambulatory Status Ambulatory,Cane Transportation Private Auto Accompanied by daughter Assessment/Plan Assessment/Plan (1) Nonhealing nonsurgical wound: CODE(S): T14.8XXA - Other injury of unspecified body region, initial encounter PLAN: Wash leg with antibacterial soap and apply Fibracol to wound base of the 3 areas cover with Adaptic and gauze and Patricia. Continue to Wong wrap left leg very important We will order an MRI of the left lower medial leg for osteomyelitis and foreign body Tramadol 50 mg 1 p.o. twice daily for pain #65 refills Follow-up in 1week (2) Postoperative wound infection: CODE(S): T81.49XA - Infection following a procedure, other surgical site, initial encounter (3) Cellulitis of left leg: CODE(S): L03.116 - Cellulitis of left lower limb PLAN: Compression to left lower leg (4) Tenderness of left calf: CODE(S): M79.662 - Pain in left lower leg PLAN: Will order emergency ultrasound to the left calf
--- NOTE | 2021-09-02 09:33 | VDLE_ITS ---
Reason For Study: WOUND/ R/O DVT Procedure LEFT Exam performed in department. GSV is normal. A preliminary report was called and/or faxed CFV is compressible, spontaneous, phasic, to SHEFALI HDZ AT [facility]. competent, and demonstrates normal augmentation. FV is compressible, spontaneous, phasic, competent and demonstrates normal augmentation. POP V is compressible, spontaneous, phasic, competent and demonstrates normal augmentation. T/P Trunk is compressible. PTV is compressible. LT PerV is compressible. VL/Venous Duplex US, Unilateral Interpretation Summary Deep veins of the left lower extremity are patent and compressible segmentally. There is no evidence of left lower extremity deep vein thrombosis. Valvular competence appears intac t within the proximal deep venous system on the left . The left great saphenous vein appears patent a nd compressible segmentally. Ordering Physician: Shefali Hdz Referring Physician: HIMANSHU VILLARREAL Performed By: Selina Munson, MAURY, RVT
[2021-09-09 08:09] VITALS: BP 147/77; PULSE 105; TEMP 36.2
--- NOTE | 2021-09-09 09:05 | PN.PCM_ITS ---
History of Present Illness Date of Service: 09/09/21 Chief Complaint: Follow-up on left lower leg open wounds History of Wound: 55-year-old black male who approximately on April 03 fell down a ladder trimming trees and had a compound fracture to the left lower leg. Patient had surgery and a juanito was placed from knee to ankle area. Patient appeared to be healing well had second-degree healing on the lower part of his leg the rest of the leg was closed with juan. Was in physical therapy and was receiving massage therapy to get rid of the edema and keloiding of some of his wounds and went home 1 day and his skin started to open and has now developed like 3 bulbar type protruding mass of skin and the area is very red and warm. Went to the emergency room after seeing his primary care doctor and they placed him on a doxycycline drip and send him home on amoxicillin. Patient then was then referred to wound center for further treatment. The surgeon states that there was a lot of debris in his leg of wood and sticks and grass. That he thought he got most of it out but, it could be foreign bodies trying to work their way out. Progress of Wound: Yesterday was seen by his orthopedic surgeon after we called them last week discussing his care and about every time he receives physical therapy the wound started to open up and protrude more. Because of his complaints of calf pain last week the ultrasound came back negative. We applied for MRI and finally got approval today on September 09 and we changed it to a stat order so we can get it done otherwise would have to wait another week. Cultures came back he is growing staph. So the surgeon told him that according to the film he is not healing and that it is either infection in there or the rods and the screws need to come out. So patient will likely be sent back to [facility] for further surgery for redo. Subjective Subjective Patient was very happy that he actually got to see the surgeon yesterday from ou r phone call. Just pending on the MRI what will happen next Objective Data Objective Data This week the area looks more reddened protruding more from the wounds hit them with nitro sticks we will continue with the Fibracol dressings until we get the MRI and find out what is going on. Patient showed new film that was taken and the one area of the bone is still not healing. The orthopedic doctor stated he should be healed by now. Not sure why he is opening up on the skin other than he thinks he might have infection at the bone site. He really wants the MRI done quickly Vital Signs: Vital Signs Temp Pulse Resp BP 97.2 F L 105 H 16 147/77 H 09/09/21 08:09 09/09/21 08:09 09/02/21 08:09 09/09/21 08:09 Oxygen Delivery Method Room Air Lab / Micro Data Attestation: I reviewed the patient's lab results. Micro: Microbiology 09/02/21 08:30 Wound Abcess - Leg, Left Gram Stain - Final 09/02/21 08:30 Wound Abcess - Leg, Left Wound Culture - Final Serratia marcescens Staphylococcus aureus 09/02/21 08:30 Wound Abcess - Leg, Left Anaerobic Culture - Final No anaerobic bacteria isolated. Physical Exam Const oriented x3 General Appearance: cooperative Exam Limitations: no limitations HEENT normocephalic Head and Scalp: normal to inspection Face and Sinus: normal facial exam Nose: external nose normal General Ear: hearing grossly impaired External Ear: external ears normal Mouth: oral and palatal mucosa normal Eyes PERRL General Eye: normal appearance of both eyes Neck full ROM General: normal visual inspection Resp normal respiratory effort Effort and Inspection: able to speak in complete sentences Auscultation: clear to auscultation bilaterally Cardio regular rate and regular rhythm Palpation: normal PMI Rate: regular rate Rhythm: regular rhythm GI Auscultation: normoactive bowel sounds Palpation: soft and no hepatosplenomegaly external exam normal Back/Spine Cervical Spine: cervical ROM normal Thoracic Spine / Upper Back: normal to inspection Lumbar Spine / Lower Back: normal to inspection Extremity normal to inspection General Extremity: normal exam except as noted Skin no rashes or lesions noted Neuro oriented x3 Psych Appearance: grossly normal Speech: normal speech Thought Content: normal thought content Judgement: judgement good Debridement Note Debridement Note Wound debrided: Left lower leg cluster Laterality: Left Type of Debridement: Excisional debridement Anesthesia Used: 5% Lidocaine Gel Depth: in the subcutaneous layer Percentage of wound debrided: 100 Instrument Used: 5mm curette Tissue Removed: Fibrin Severity: Limited To Skin Breakdown Amount of bleeding with debridement: Mild Bleeding Controlled with: Silver Nitrate Patient tolerated procedure: Patient tolerated procedure well Post-Debridement Measurements and Additional Note: Post-Debridement Measurements/Treatment WC - Nurse 1 - General Ulcer Assessment Start: 09/02/21 08:09 Freq: Status: Active Protocol: KRISTI Activity Type Activity Date Activity User E-Sign Co-Sign Detail Recorded Client Recorded Date Recorded By Document 09/02/21 08:09 [facility] [id number] 09/02/21 08:16 [facility] Document 09/09/21 08:09 ARMANDO [id number] 09/09/21 08:10 ARMANDO 09/02/21 09/09/21 08:09 08:09 - Today's Visit Information Type of service Follow-up Visit Follow-up Visit (Physician/BOARDER [employer]AM (Physician/BOARDER [employer] ) ) Arrival Mode Ambulatory,Cane Ambulatory,Cane Transfer Assistance None Accompanied by daughter Patient Identification Verified (Name & Yes Yes ) Patient Requires Transmission-Based No Precautions Vital Signs Temperature (97.8 F-99.1 F) 96.8 F L 97.2 F L Temperature Source Temporal Temporal Pulse Rate (60-100) 105 H Pulse Location Monitor Monitor Respiratory Rate (12-18) 16 Respiratory rate source Observation Oxygen Delivery Method Room Air Blood Pressure (90/60-120/80) 147/77 H Blood Pressure Mean (mm Hg) 100 Source Monitor Monitor Position Sitting Semi-Fowlers Blood Pressure Location Left Forearm Right Arm History Since Last Visit- (Skip if this is Patient's initial visit) Have you changed medications since your No No last visit? Any new allergies or adverse reactions No No Had a fall/change in ADL's that may No No increase risk of falls Signs or symptoms of abuse and/or No No neglect since last visit Have you been in the hospital since your No No last visit? Has dressing in place as prescribed Yes Yes Has compression in place as prescribed Yes Yes Has offloadiing in place as prescribed N/A N/A Experienced any changes in pain level or No No management Left Footwear Regular Shoe Regular Shoe Right Footwear Regular Shoe Regular Shoe Pain Scale: 0-10 Numeric Is Patient Pain Free? Yes Yes - Nurse 1 - General Ulcer Measurement Start: 09/02/21 08:09 Freq: Status: Active Protocol: Activity Type Activity Date Activity User E-Sign Co-Sign Detail Recorded Client Recorded Date Recorded By Document 09/02/21 08:09 [facility] [id number] 09/02/21 08:16 [facility] Document 09/09/21 08:09 KR [id number] 09/09/21 08:10 KR 09/02/21 09/09/21 08:09 08:09 Wound Center Nurse 1 #1 Left Lower medial extremity cluster -Combined with other wound No -Current Size (cm) - Length 7.7 7 -Current Size (cm) - Width 3 4.5 -Current Size (cm) - Depth 0.1 0.1 -Total Square Cm 23.1 31.5 -Photo Taken No -Epithelialization Small 1-33% -Tunneling No -Undermining/Tunneling No -Circular Undermining No -Exudate Amt Small Medium -Exudate Type Serosanguineous Serosanguineous -Wound Margin Distinct, Distinct, Outline Outline Attached Attached -Granulation Amt Medium (34-66%) Large (67-100%) -Granulation Quality [place] Hyper- granulation,Red -Slough/Fibrin Yes -Necrosis Amt Medium (34-66%) None Present (0 %) -Necrotic Tissue Type Adherent Slough -Texture (Shaina-wound Skin Appearance) Assessed, Assessed, Scarring Scarring -Moisture (Shaina-wound Skin Appearance) Assessed No Abnormality, Assessed -Color (Shaina-wound Skin Appearance) Assessed No Abnormality, Assessed -Temperature (Shaina-wound Skin No Abnormality No Abnormality Appearance) (Pt Warm) (Pt Warm) -Tenderness on Palpation (Shaina-wound No No Skin Appearance) -Ulcer Cleansing Rinsed/ Rinsed/ Irrigated with Irrigated with Saline Saline -Foul Odor after Cleansing No No -Anesthetic Used 5% Lidocaine 4% Lidocaine Gel Solution Lower Limb Edema Present Yes Left Calf (cm) 39.9 38.7 Left Ankle (cm) 25.6 27 WC - Nurse 2 - General Ulcer CM Notes Start: 09/02/21 08:09 Freq: Status: Active Protocol: Activity Type Activity Date Activity User E-Sign Co-Sign Detail Recorded Client Recorded Date Recorded By Document 09/02/21 08:34 MW [id number] 09/02/21 08:42 MW Document 09/09/21 09:01 PL [id number] 09/09/21 09:02 PL 09/02/21 09/09/21 08:34 09:01 Wound Center Nurse 2 #1 Left Lower medial extremity cluster -Time 08:36 08:30 -Correct Patient Yes Yes -Correct Side, Site, Position Yes Yes -Correct Procedure Yes Yes -Procedure Performed Yes Yes -Type of Procedure Debridement Debridement -Clinical Debridement Subcutaneous Subcutaneous -Tissue Removed Subcutaneous Subcutaneous -Post Debridement (cm) - Length 7.0 7.2 -Post Debridement (cm) - Width 3.3 4.2 -Post Debridement (cm) - Depth 0.1 0.1 -Total Square (Post) (cm) 23.10 30.24 -Area of Debridement (cm) - Length 7.0 7.2 -Area of Debridement (cm) - Width 3.3 4.2 -Total Square (Area) (cm) 23.10 30.24 -Tunneling No No -Undermining/Tunneling No No -Circular Undermining No No -Wound/Ulcer Outcome Not Healed Not Healed -Ulcer Cleansing Rinsed/ Rinsed/ Irrigated with Irrigated with Saline Saline -Foul Odor after Cleansing No No -Bioengineered Tissue No No -Bleeding Controlled with Pressure Pressure -Offloading No No -Treatment Response Procedure Procedure Tolerated Well Tolerated Well -Debridement - Subq, 1st 20sq cm Yes Yes -Debridement, SubQ, ea addt'l 20sq cm 1 1 or part thereof Pain Scale: 0-10 Numeric Is Patient Pain Free? Yes - Nurse 3 - General Ulcer D/C NN Start: 09/02/21 08:09 Freq: Status: Active Protocol: Activity Type Activity Date Activity User E-Sign Co-Sign Detail Recorded Client Recorded Date Recorded By Document 09/02/21 09:06 ARMANDO [id number] 09/02/21 09:07 ARMANDO 09/02/21 09:06 Wound Care Nurse 3 -Primary Dressing Applied Fibracol Plus 4x4,NonAdherent Contact Layer -Primary Dressing Covered/Secured with Dry Gauze,Dry Gauze & Roll Gauze,Secured with Tape -Fibracol Plus 4x4 1 Left -Compression Wrap Wong Wrap Pain Scale: 0-10 Numeric Is Patient Pain Free? Yes - Visit Discharge Discharge Condition Stable Ambulatory Status Ambulatory,Cane Transportation Private Auto Accompanied by daughter Assessment/Plan Assessment/Plan (1) Nonhealing nonsurgical wound: CODE(S): T14.8XXA - Other injury of unspecified body region, initial encounter PLAN: Wash leg with antibacterial soap and apply Fibracol to wound base of the 3 areas cover with Adaptic and gauze and Patricia. Continue to Wong wrap left leg very important Get the MRI of the left lower medial leg for osteomyelitis and foreign body stat Take tramadol 50 mg 1 p.o. twice daily for pain #65 refills Start Bactrim DS 1 p.o. twice daily for 14 days Follow-up in 1week (2) Postoperative wound infection: CODE(S): T81.49XA - Infection following a procedure, other surgical site, initial encounter (3) Cellulitis of left leg: CODE(S): L03.116 - Cellulitis of left lower limb PLAN: Compression to left lower leg (4) Tenderness of left calf: CODE(S): M79.662 - Pain in left lower leg PLAN: Will order emergency ultrasound to the left calf
--- NOTE | 2021-09-09 14:15 | MRI_ITS ---
EXAM: MR LEFT LOWER EXTREMITY WITHOUT INTRAVENOUS CONTRAST, TIBIA AND FIBULA CLINICAL INDICATION: LT MEDIAL LE ULCER, OSTEOMYELITIS Technologist Notes compound fx 6 months ago, 2 quarter sized open wound in area marked with oil bead TECHNIQUE: Multiplanar and multisequence MR images of the left tibia and fibula without intravenous contrast. This report was created using [employer] report generation technology. COMPARISON: xr 07.24.21 FINDINGS: BONES/JOINTS: There is an enthesophyte involving the posterior superior calcaneus at the site of insertion of the Achilles tendon. 2 screws transfixing the medial malleolus. Tibial intramedullary olvin visualized extending through a distal tibial comminuted fracture. Olvin is transfixed distally by 3 cortical roots. At the distal tibial fracture site, at the level of the capsule marker, there is abnormal fluid signal on SE 6 IM: . This measures 16 x 1 x 38mm. Se 4 IM: . There is a distal fibular fracture. No joint effusion. MUSCLES: Unremarkable. No edema or myositis. OTHER SOFT TISSUES: Unremarkable. No solid or cystic mass. MRI/Lower Ext/No Jt/w/o IMPRESSION: At the distal tibial fracture site, at the level of the capsule marker, there is abnormal fluid signal which may represent a seroma, hematoma, or abscess. IV contrast was not administered. Electronically Signed: Seth Wolff MD at 15:44 EST , Service support ,
[2021-09-16 08:02] VITALS: BP 137/88; PULSE 106; RESP 16; TEMP 35.3
--- NOTE | 2021-09-16 09:30 | PCM.WC.PN ---
History of Present Illness Date of Service: 09/16/21 Chief Complaint: Follow-up on left lower leg open wounds History of Wound: 55-year-old black male who approximately on April 03 fell down a ladder trimming trees and had a compound fracture to the left lower leg. Patient had surgery and a juanito was placed from knee to ankle area. Patient appeared to be healing well had second-degree healing on the lower part of his leg the rest of the leg was closed with juan. Was in physical therapy and was receiving massage therapy to get rid of the edema and keloiding of some of his wounds and went home 1 day and his skin started to open and has now developed like 3 bulbar type protruding mass of skin and the area is very red and warm. Went to the emergency room after seeing his primary care doctor and they placed him on a doxycycline drip and send him home on amoxicillin. Patient then was then referred to wound center for further treatment. The surgeon states that there was a lot of debris in his leg of wood and sticks and grass. That he thought he got most of it out but, it could be foreign bodies trying to work their way out. Progress of Wound: MRI shows either has a hematoma seroma or infection down by the bone. We did not use contrast so that is the best I could see. Patient does have an appointment today at 11 with the orthopedic surgeon. I told him to leave without an appointment date for the next surgery. We copied all labs x-rays MRIs and sent them down with them also in case they do not have him. Still has the open areas nothing is changed I told him to stop PT because it seems to be making those open areas worse. Patient will be discharged from the wound center and transfer care to the orthopedic surgeon. Subjective Subjective Patient here mostly to discuss his MRI and answer questions before they go down to [facility] Objective Data Objective Data The wound has not changed still the same though is open punctuated openings are still there in a cluster. The MRI shows that there is something down in there that needs to be removed and that healing is not occurring. Patient is still having a lot of pain 6 months after surgery. Vital Signs: Vital Signs Temp Pulse Resp BP 95.6 F L 106 H 16 137/88 H 09/16/21 08:02 09/16/21 08:02 09/16/21 08:02 09/16/21 08:02 Oxygen Delivery Method Room Air Lab / Micro Data Attestation: I reviewed the patient's lab results. Micro: Microbiology 09/02/21 08:30 Wound Abcess - Leg, Left Gram Stain - Final 09/02/21 08:30 Wound Abcess - Leg, Left Wound Culture - Final Serratia marcescens Staphylococcus aureus 09/02/21 08:30 Wound Abcess - Leg, Left Anaerobic Culture - Final No anaerobic bacteria isolated. Physical Exam Const oriented x3 General Appearance: cooperative Exam Limitations: no limitations HEENT normocephalic Head and Scalp: normal to inspection Face and Sinus: normal facial exam Nose: external nose normal General Ear: hearing grossly impaired External Ear: external ears normal Mouth: oral and palatal mucosa normal Eyes PERRL General Eye: normal appearance of both eyes Neck full ROM General: normal visual inspection Resp normal respiratory effort Effort and Inspection: able to speak in complete sentences Auscultation: clear to auscultation bilaterally Cardio regular rate and regular rhythm Palpation: normal PMI Rate: regular rate Rhythm: regular rhythm GI Auscultation: normoactive bowel sounds Palpation: soft and no hepatosplenomegaly external exam normal Back/Spine Cervical Spine: cervical ROM normal Thoracic Spine / Upper Back: normal to inspection Lumbar Spine / Lower Back: normal to inspection Extremity normal to inspection General Extremity: normal exam except as noted Skin no rashes or lesions noted Neuro oriented x3 Psych Appearance: grossly normal Speech: normal speech Thought Content: normal thought content Judgement: judgement good Debridement Note Debridement Note Wound debrided: Left medial ankle cluster No debridement was completed: No debridement was completed today Assessment/Plan Assessment/Plan (1) Nonhealing nonsurgical wound: CODE(S): T14.8XXA - Other injury of unspecified body region, initial encounter PLAN: Wash leg with antibacterial soap and apply Fibracol to wound base of the 3 areas cover with Adaptic and gauze and Patricia. Continue to Wong wrap left leg very important till surgery Continue take tramadol 50 mg 1 p.o. twice daily for pain #65 refills (2) Postoperative wound infection: CODE(S): T81.49XA - Infection following a procedure, other surgical site, initial encounter (3) Cellulitis of left leg: CODE(S): L03.116 - Cellulitis of left lower limb PLAN: Compression to left lower leg (4) Tenderness of left calf: CODE(S): M79.662 - Pain in left lower leg PLAN: Will order emergency ultrasound to the left calf
== END 2021-09-16 08:50 | disposition home or self-care (01) ==
LOC: WC 08:00
PROVIDERS: PCP Family Medicine; Referring Provider Nurse Practitioner; Visit Provider Nurse Practitioner
DX: E11.622 Type 2 diabetes mellitus with other skin ulcer (principal); T81.49XA Infection following a procedure, other surgical site, initial encounter; L91.0 Hypertrophic scar; L03.116 Cellulitis of left lower limb; T14.8XXA Other injury of unspecified body region, initial encounter; Y83.8 Other surgical procedures as the cause of abnormal reaction of the patient, or of later complication, without mention of misadventure at the time of the procedure; L97.821 Non-pressure chronic ulcer of other part of left lower leg limited to breakdown of skin
CPT/HCPCS: 11042; 11045; 73718; 87070; 87075; 87077; 87186; 87205; 93971; 99213; G0463

== ENCOUNTER → 2021-09-21 19:16 | Outpatient (CLI) | payer OTHER, SELFPAY ==
--- NOTE | 2021-09-21 19:45 | CT_ITS ---
HISTORY: Left calf tenderness post op EXAMINATION: CT Lower Extremity W/O Contrast Injection TECHNIQUE: Helically acquired images were obtained of the left lower extremity. 2-D reformats were performed by the technologist. A radiation dose optimization technique was used for this scan. IV Contrast dosage and agent: None. COMPARISON: None FINDINGS: SOFT TISSUES: Diffuse soft tissue edema about the distal tibia and fibula. No gas formations or well-defined fluid collections. BONES/JOINTS: Intramedullary nail fixation of a comminuted fracture distal tibia. Reactive periostitis without significant union of the major bone fragments. No carley cortical destructive lesions comminuted fracture distal fibula without significant healing callus formation. Small amount of lucency about the distal tibial fixation screw. CT/Extremity Lower without Contra IMPRESSION: Status post ORIF comminuted fracture distal tibia. There is periostitis without significant union of the bony fragments. Lucency about the distal tibial fixation screw suspicious for possible infection. Soft tissue edema without gas formation or carley fluid collection. Individualized dose optimization techniques were used for this CT. at 2138 Reported and signed by: Tyrell Avila MD Electronically Signed: Tyrell Avila MD at 21:36 EST Tel , Service support ,
== END ==
PROVIDERS: PCP Family Medicine
DX: T81.40XA Infection following a procedure, unspecified, initial encounter (principal); T84.84XA Pain due to internal orthopedic prosthetic devices, implants and grafts, initial encounter
CPT/HCPCS: 73700

== ENCOUNTER → 2021-11-03 09:57 | Outpatient (CLI) | payer OTHER, SELFPAY ==
[2021-11-03 11:10] LABS: Absolute Lymphocyte Count 2.38 X10^3/uL (0.83-4.51); Absolute Neutrophil Count 5.3 X10^3/uL (2.0-7.7); Basophil# 0.07 X10^3/uL; Basophil% 0.8 % (0-1); Eosinophil# 0.56 X10^3/uL; Eosinophils% 6.2 % (0-5); Hematocrit 34.6 % (40-54); Hemoglobin 11.1 g/dL (13.0-16.5); Lymphocyte # 2.38 X10^3/ul (0.83-4.51); Lymphocyte % 26.4 % (19-41); Mean Corp Hgb Conc 32.1 g/dL (32-36); Mean Corpuscular Hgb 26.9 pg (27.0-32.0); Mean Corpuscular Volume 83.8 fL (80-94); Mean Platelet Vol. 9.4 fl (6.2-12.0); Monocyte# 0.69 X10^3/uL; Monocyte% 7.6 % (0-10); NRBC Flagged by Analyzer 0 % (0-5); Neutrophil # 5.29 X10^3/uL (2.7-7.7); Neutrophil % 58.6 % (47-70); Platelet Count 327 K/mm3 (150-450); RBC Distribution Width CV 14.5 % (11.6-14.6); RBC Distribution Width SD 44.2 fl (35.1-43.9); Red Blood Count 4.13 M/mm3 (4.6-6.2)
[2021-11-03 11:50] LABS: Anion Gap 6 (5-15); BUN 17 mg/dL (7-18); BUN/Creat Ratio 17.6 RATIO (10-20); CRP 5.13 mg/L (0.0-3.0); Calcium,Total 8.6 mg/dL (8.5-10.1); Chloride 107 mmol/L (98-107); Creatinine, Serum 0.97 mg/dL (0.70-1.30); EST Glomerular Filtration Rate 85 mL/min (>60); Est Glom Filt Rate - Afr Amer 103 mL/min (>60); Glucose 184 mg/dL (74-106); Potassium 3.7 mmol/L (3.5-5.1); Sodium Level 139 mmol/L (136-145)
[2021-11-03 12:23] LABS: Erythrocyte Sedimentation Rate 27 mm/hr (0-20)
== END ==
PROVIDERS: PCP Family Medicine
DX: M86.60 Other chronic osteomyelitis, unspecified site (principal)
CPT/HCPCS: 36415; 80048; 85025; 85652; 86140

== ENCOUNTER → 2021-11-17 11:27 | Outpatient (CLI) | payer OTHER, SELFPAY ==
[2021-11-17 12:35] LABS: Erythrocyte Sedimentation Rate 12 mm/hr (0-20)
[2021-11-17 13:00] LABS: CRP 4.32 mg/L (0.0-3.0)
== END ==
PROVIDERS: PCP Family Medicine
DX: M86.60 Other chronic osteomyelitis, unspecified site (principal)
CPT/HCPCS: 36415; 85652; 86140

== ENCOUNTER 2022-03-08 12:34 | Emergency (ER) | payer OTHER, SELFPAY ==
[2022-03-08 12:35] VITALS: BP 129/78; PULSE 101; RESP 18; TEMP 36.4; O2SAT 98; BMI 33.2
[2022-03-08 15:18] LABS: Absolute Neutrophil Count 6.4 X10^3/uL (2.0-7.7); Basophil# 0.06 X10^3/uL; Basophil% 0.6 % (0-1); Eosinophil# 0.59 X10^3/uL; Eosinophils% 5.9 % (0-5); Hematocrit 34.3 % (40-54); Hemoglobin 10.6 g/dL (13.0-16.5); Mean Corp Hgb Conc 30.9 g/dL (32-36); Mean Corpuscular Hgb 26.8 pg (27.0-32.0); Mean Corpuscular Volume 86.6 fL (80-94); Mean Platelet Vol. 9.5 fl (6.2-12.0); NRBC Flagged by Analyzer 0 % (0-5); Neutrophil # 6.42 X10^3/uL (2.7-7.7); Platelet Count 302 K/mm3 (150-450); RBC Distribution Width CV 16.1 % (11.6-14.6); RBC Distribution Width SD 51.3 fl (35.1-43.9); Red Blood Count 3.96 M/mm3 (4.6-6.2)
[2022-03-08 15:36] LABS: AST(SGOT) 18 U/L (15-37); Alanine Aminotransfer ALT/SGPT 29 U/L (16-61); Albumin, Serum 3.6 g/dL (3.2-5.0); Alkaline Phosphatase 164 U/L (45-117); Anion Gap 6 (5-15); BUN 11 mg/dL (7-18); BUN/Creat Ratio 14.5 RATIO (10-20); CRP 7.75 mg/L (0.0-3.0); Calcium,Total 8.8 mg/dL (8.5-10.1); Chloride 103 mmol/L (98-107); Creatinine, Serum 0.76 mg/dL (0.70-1.30); EST Glomerular Filtration Rate 112 mL/min (>60); Est Glom Filt Rate - Afr Amer 136 mL/min (>60); Estimated Creatinine Clearance 133.52 ml/min; Globulin 3.6 g/dL (2.2-4.2); Glucose 180 mg/dL (74-106); Potassium 3.8 mmol/L (3.5-5.1); Protein, Total 7.2 g/dL (6.4-8.2); Sodium Level 137 mmol/L (136-145)
--- NOTE | 2022-03-08 15:57 | CM.ED ---
MARIANNA Note Referral Source: MD Referral Reason: Home Health referral said that patient had discharged from [facility] and had attempted to get home health however the agencies that they tried never went to the home. MARIANNA called Cee at Home Health. They received referral from [facility] 1 month ago but declined however they would review a new referral. Cee said that she has spoken to KOMAL Garcia at [facility] ([phone]) MARIANNA called Radha. She said that she has spoken to MARIANNA at [facility], Niki and that Niki is getting the referral packet together which included the History and Physical, Updated IV order, Updated Medication List and Order for Home Health. Radha said that she had just received a message, 2-3 minutes ago from [place] that the packet had been sent. MARIANNA and Radha attempted to problem storm for if home health was unable to provide care for patient. Discussed with Radha about contacting PCP for orders at the infusion center (as Radha did not think that the infusion center would take [facility] orders as they do not have privileges and social and human services assistant discussed referral from PCP, Dr. Linda. Radha said that they had Dr. Ng as his PCP and when she called the phone line this morning it was busy. MARIANNA provided updated phone number for Dr. Linda. MARIANNA spoke to patient and his daughter and updated them. Patient said that his MD is Dr. Linda and he has a MD at the wound Center (MARIANNA thought patient said it was Dr. Jerez but SW does not see that name on the names of MD at Wound Center). Patient reports he resides with his daughter. Patient was employed at [employer] however, he is currently on disability. MARIANNA provided update MARIANNA called Cee at Home Health. No fax from [facility] yet. MARIANNA called Radha at [facility]. MARIANNA advised that fax had not been received by home health yet. Radha said that she will send message to Niki to send fax directly to [facility] Home Health. MARIANNA spoke to Cee at Home Health and she reported that the referral had started to be received at home health. MARIANNA called Radha at [facility]. Updated her about the referral being received. Radha said that if she can't get home health another option would be to ask [facility] if they could provide RN one time a week. MARIANNA updated MD. MARIANNA updated RN [facility] [employer] Kaity Nunez. MARIANNA also updated RN. RN said that patient and his daughter are doing the home IV's at home but they came in for blood work and dressing change. MARIANNA updated Kaity Nunez. SW spoke to patient's daughter and patient and provided them with RN CM Managers phone number for contact. Plan: [facility] has made the referral on this date for home health at [facility]. [facility] will review referral. Sharmin FOSTER
--- NOTE | 2022-03-08 16:24 | EDS_ITS ---
HPI History of Present Illness Chief Complaint: Wound Check Informant: patient and spouse/S.O. Narrative Narrative: Patient presents to have PICC line dressing changed and blood work drawn. This patient had a complex fracture of his left ankle back in April 2021. He just had his third surgery on 15 February [facility] [place]. He was discharged a few days after that. A PICC line was placed on the . He is on Maxipime twice a day for this. He has been doing well. He has not been having fevers chills nausea vomiting. The wounds seem to be healing around his ankle. He is infusing the antibiotics without difficulty. He is supposed to have a home health nurse and aide come in to help with infusions as well as blood draws and overall management. They have been doing all this themselves. But they cannot do blood draws. So they were sent in to have this done. He is hooked up evidently with the wound center though. I was able to bring up some of his blood work. His recent white count was 12 5. His recent hemoglobin was 7 4. He was given an iron infusion and on iron supplements. I did not see a CRP on his list on the phone. [facility] Medical History HLD (hyperlipidemia) HTN (hypertension) Home Medications acetaminophen 325 mg PO Q6H 03/08/22 [History Last Taken Unknown] amlodipine 5 mg PO DAILY 03/08/22 [History Last Taken Unknown] cefepime 1 g IV Q12H 03/08/22 [History Last Taken Unknown] clonazepam 1 mg PO QHS 03/08/22 [History Last Taken Unknown] cyclobenzaprine 10 mg PO TID 03/08/22 [History Last Taken Unknown] enoxaparin 40 mg SUBCUT DAILY 03/08/22 [History Last Taken Unknown] ferrous sulfate 325 mg PO DAILY 03/08/22 [History Last Taken Unknown] fexofenadine 180 mg PO DAILY 03/08/22 [History Last Taken Unknown] fluticasone propionate 1 spray INTRANASAL BID 03/08/22 [History Last Taken Unknown] gabapentin 300 mg PO TID 03/08/22 [History Last Taken Unknown] metformin 500 mg PO DAILY 03/08/22 [History Last Taken Unknown] rosuvastatin 10 mg PO DAILY 03/08/22 [History Last Taken Unknown] tadalafil 20 mg PO DAILY 03/08/22 [History Last Taken Unknown] Allergy/AdvReac Type Severity Reaction Status Date / Time acetaminophen [From Percocet] AdvReac Other Verified 03/08/22 12:35 oxycodone [From Percocet] AdvReac Other Verified 03/08/22 12:35 Surgical History History of cholecystectomy History of fusion of cervical spine History of meniscectomy of left knee History of meniscectomy of right knee Social History Smoking Status: Never smoker ROS ROS ED Constitutional Constitutional ED: Denies chills, fever(s), subjective or sweats Cardiovascular Cardiovascular: Denies chest pain Respiratory/Chest Respiratory/Chest: Denies cough or dyspnea Gastrointestinal Gastrointestinal: Denies nausea or vomiting Musculoskeletal Musculoskeletal: Reports other Details: Mild left lower EXTR knee pain. It is controlled with morning and evening oxycodone and occasionally Tylenol midday. Integumentary Reports other Details: Healing wounds left lower extremity Neurologic Neurologic: Denies weakness Endocrine Endocrinology: Denies polydipsia or polyuria Allergic/Immunologic Allergic/Immunologic ED: Denies urticaria EXAM Physical Exam Const Vital Signs: 03/08/22 12:35 Temperature 97.6 F L Temperature Source Temporal Pulse Rate 101 H Respiratory Rate 18 Blood Pressure 129/78 H Blood Pressure Mean 95 Pulse Ox 98 Oxygen Delivery Method Room Air Positive well nourished and well developed General Appearance ED: well developed and NAD; Negative for cyanotic or diaphoretic Resp normal respiratory effort Cardio regular rate and regular rhythm GI normal to inspection, nondistended, normoactive bowel sounds Palpation: soft Extremity Extremity Narrative: We unwrapped the left lower extremity. He has healing incision around the lower portion. He has granulation tissue developing. There is mild tenting of the skin around 1 wire at the top but there is no drainage. No notable erythema. Overall these all look good. PICC line in the right upper extremity also looks clean dry and intact. No problems noted. Neuro Sensorium / Orientation: alert Psych mental status grossly normal Skin no rashes or lesions noted Skin Narrative: See above. MDM MDM MDM Narrative Medical decision making narrative: Patient's white count is down. His hemoglobin is up. Electrolytes are overall unremarkable. Glucose is mildly elevated. C-reactive protein is 7.75. But I do not have his recent ones to know a trend. In either case he is not having fevers or chills. He feels well. Infusions are going well. Wounds are healing. White count is down. I did involve social professionals who is helping make arrangements for ongoing care for this patient. Lab Data Attestation: I reviewed the patient's lab results. Labs: Laboratory Results - last 24 hr 03/08/22 03/08/22 15:08 15:08 WBC 10.0 RBC 3.96 L Hgb 10.6 L Hct 34.3 L MCV 86.6 MCH 26.8 L MCHC 30.9 L RDW Std Deviation 51.3 H RDW Coeff of Darren 16.1 H Plt Count 302 MPV 9.5 Immature Gran % (Auto) 0.500 Neut % (Auto) 64.0 Lymph % (Auto) 20.0 [place] % (Auto) 9.0 Eos % (Auto) 5.9 H Baso % (Auto) 0.6 Absolute Neuts (auto) 6.4 Absolute Lymphs (auto) 2.00 Nucleated RBC % 0 ESR 70 H Sodium 137 Potassium 3.8 Chloride 103 Carbon Dioxide 28.0 Anion Gap 6 BUN 11 Creatinine 0.76 Estim Creat Clear Calc 133.52 Est GFR (MDRD) Af Amer 136 Est GFR (MDRD) Non-Af 112 BUN/Creatinine Ratio 14.5 Glucose 180 H Calcium 8.8 Total Bilirubin 0.30 AST 18 ALT 29 Alkaline Phosphatase 164 H C-React Prot Ext Range 7.75 H Total Protein 7.2 Albumin 3.6 Globulin 3.6 Albumin/Globulin Ratio 1.0 Discharge Plan Triage Chief Complaint: Wound Check Other Complaint: General Illness ED Provider: Last Sanchez Dx/Rx/DC Orders Clinical Impression: Dressing change or removal, surgical wound, S/P PICC central line placement Instructions: ED Post Op Wound Check, General Prescriptions: No Action cyclobenzaprine 10 mg Tablet 10 mg PO TID RF: 0 acetaminophen 325 mg Tablet 325 mg PO Q6H RF: 0 clonazepam 1 mg Tablet 1 mg PO QHS RF: 0 fexofenadine 180 mg Tablet 180 mg PO DAILY RF: 0 amlodipine 5 mg Tablet 5 mg PO DAILY RF: 0 ferrous sulfate 325 mg (65 mg iron) Tablet 325 mg PO DAILY RF: 0 gabapentin 300 mg Capsule 300 mg PO TID RF: 0 fluticasone propionate 50 mcg/actuation [place],Suspension 1 spray INTRANASAL BID RF: 0 metformin 500 mg Tablet Extended Release 24 Hr 500 mg PO DAILY RF: 0 enoxaparin 40 mg/0.4 mL Syringe 40 mg SUBCUT DAILY RF: 0 cefepime 2 gram Piggyback 1 g IV Q12H RF: 0 rosuvastatin 10 mg Tablet 10 mg PO DAILY RF: 0 tadalafil 20 mg Tablet 20 mg PO DAILY RF: 0 Primary Care Provider: Pelon Linda Referrals: Pelon Linda MD [Primary Care Provider] - As soon as possible Disposition Disposition: Home, Self Care
[2022-03-08 23:44] LABS: Erythrocyte Sedimentation Rate 31 mm/hr (0-20)
== END 2022-03-08 17:20 | disposition home or self-care (01) ==
PROVIDERS: Emergency Medicine; Emergency Provider Emergency Medicine; PCP Family Medicine; Visit Provider Emergency Medicine
DX: Z48.01 Encounter for change or removal of surgical wound dressing (principal); I10 Essential (primary) hypertension; Z79.899 Other long term (current) drug therapy
CPT/HCPCS: 80048; 80053; 85025; 86140; 99282; A4216

== ENCOUNTER 2022-03-15 15:25 | Outpatient (RCR) | payer OTHER, SELFPAY ==
[2022-03-15 15:48] LABS: Absolute Lymphocyte Count 1.72 X10^3/uL (0.83-4.51); Absolute Neutrophil Count 4.5 X10^3/uL (2.0-7.7); Basophil# 0.05 X10^3/uL; Basophil% 0.7 % (0-1); Eosinophil# 0.55 X10^3/uL; Eosinophils% 7.5 % (0-5); Hematocrit 37.3 % (40-54); Hemoglobin 11.4 g/dL (13.0-16.5); Lymphocyte # 1.72 X10^3/ul (0.83-4.51); Lymphocyte % 23.4 % (19-41); Mean Corp Hgb Conc 30.6 g/dL (32-36); Mean Corpuscular Hgb 26.6 pg (27.0-32.0); Mean Corpuscular Volume 87.1 fL (80-94); Mean Platelet Vol. 10.9 fl (6.2-12.0); Monocyte# 0.52 X10^3/uL; Monocyte% 7.1 % (0-10); NRBC Flagged by Analyzer 0 % (0-5); Neutrophil # 4.47 X10^3/uL (2.7-7.7); Neutrophil % 60.9 % (47-70); Platelet Count 236 K/mm3 (150-450); RBC Distribution Width CV 14.6 % (11.6-14.6); RBC Distribution Width SD 47.3 fl (35.1-43.9); Red Blood Count 4.28 M/mm3 (4.6-6.2); White Blood Count 7.3 K/mm3 (4.4-11.0)
[2022-03-15 16:12] LABS: ALB/GLOB Ratio 0.9 RATIO (0.9-2.4); AST(SGOT) 23 U/L (15-37); Alanine Aminotransfer ALT/SGPT 25 U/L (16-61); Albumin, Serum 3.5 g/dL (3.2-5.0); Alkaline Phosphatase 153 U/L (45-117); Anion Gap 9 (5-15); BUN 17 mg/dL (7-18); BUN/Creat Ratio 17.5 RATIO (10-20); CRP 4.81 mg/L (0.0-3.0); Calcium,Total 8.7 mg/dL (8.5-10.1); Chloride 105 mmol/L (98-107); Creatinine, Serum 0.97 mg/dL (0.70-1.30); EST Glomerular Filtration Rate 84 mL/min (>60); Est Glom Filt Rate - Afr Amer 102 mL/min (>60); Globulin 3.7 g/dL (2.2-4.2); Glucose 268 mg/dL (74-106); Potassium 3.8 mmol/L (3.5-5.1); Protein, Total 7.2 g/dL (6.4-8.2); Sodium Level 141 mmol/L (136-145)
== END 2022-04-01 23:59 ==
LOC: HHLAB 15:25
PROVIDERS: PCP Family Medicine
DX: T84.623A Infection and inflammatory reaction due to internal fixation device of left tibia, initial encounter; M86.9 Osteomyelitis, unspecified
CPT/HCPCS: 80053; 85025; 86140

== ENCOUNTER 2022-03-23 11:41 | Outpatient (RCR) | payer OTHER, SELFPAY ==
[2022-03-23 12:05] LABS: Absolute Lymphocyte Count 1.82 X10^3/uL (0.83-4.51); Absolute Neutrophil Count 4.5 X10^3/uL (2.0-7.7); Basophil# 0.07 X10^3/uL; Basophil% 0.9 % (0-1); Eosinophil# 0.52 X10^3/uL; Hematocrit 37.4 % (40-54); Hemoglobin 11.4 g/dL (13.0-16.5); Lymphocyte # 1.82 X10^3/ul (0.83-4.51); Lymphocyte % 24.5 % (19-41); Mean Corp Hgb Conc 30.5 g/dL (32-36); Mean Corpuscular Hgb 26.5 pg (27.0-32.0); Mean Platelet Vol. 11.1 fl (6.2-12.0); Monocyte# 0.49 X10^3/uL; Monocyte% 6.6 % (0-10); NRBC Flagged by Analyzer 0 % (0-5); Neutrophil # 4.47 X10^3/uL (2.7-7.7); Neutrophil % 60.1 % (47-70); Platelet Count 227 K/mm3 (150-450); RBC Distribution Width CV 14.3 % (11.6-14.6); RBC Distribution Width SD 45.5 fl (35.1-43.9); White Blood Count 7.4 K/mm3 (4.4-11.0)
[2022-03-23 12:07] LABS: ALB/GLOB Ratio 1.2 RATIO (0.9-2.4); AST(SGOT) 20 U/L (15-37); Alanine Aminotransfer ALT/SGPT 26 U/L (16-61); Albumin, Serum 3.8 g/dL (3.2-5.0); Alkaline Phosphatase 134 U/L (45-117); Anion Gap 7 (5-15); BUN 17 mg/dL (7-18); BUN/Creat Ratio 21.1 RATIO (10-20); CRP < 2.90 mg/L (0.0-3.0); Chloride 107 mmol/L (98-107); Creatinine, Serum 0.81 mg/dL (0.70-1.30); EST Glomerular Filtration Rate 105 mL/min (>60); Est Glom Filt Rate - Afr Amer 127 mL/min (>60); Globulin 3.2 g/dL (2.2-4.2); Glucose 178 mg/dL (74-106); Sodium Level 142 mmol/L (136-145)
[2022-03-23 12:33] LABS: Erythrocyte Sedimentation Rate 21 mm/hr (0-20)
== END 2022-04-01 23:59 ==
LOC: HHLAB 11:41
PROVIDERS: PCP Family Medicine
DX: T84.7XXA Infection and inflammatory reaction due to other internal orthopedic prosthetic devices, implants and grafts, initial encounter (principal); M86.462 Chronic osteomyelitis with draining sinus, left tibia and fibula
CPT/HCPCS: 80053; 85025; 85652; 86140

== ENCOUNTER → 2022-04-26 | Outpatient (CLI) | payer OTHER, SELFPAY ==
[2022-04-26 16:23] LABS: Absolute Lymphocyte Count 3.17 X10^3/uL (0.83-4.51); Absolute Neutrophil Count 6.8 X10^3/uL (2.0-7.7); Basophil# 0.08 X10^3/uL; Basophil% 0.7 % (0-1); Eosinophil# 0.45 X10^3/uL; Eosinophils% 3.9 % (0-5); Hematocrit 42.1 % (40-54); Hemoglobin 13.7 g/dL (13.0-16.5); Lymphocyte # 3.17 X10^3/ul (0.83-4.51); Lymphocyte % 27.6 % (19-41); Mean Corp Hgb Conc 32.5 g/dL (32-36); Mean Corpuscular Hgb 26.2 pg (27.0-32.0); Mean Corpuscular Volume 80.7 fL (80-94); Mean Platelet Vol. 9.9 fl (6.2-12.0); Monocyte# 0.96 X10^3/uL; Monocyte% 8.4 % (0-10); NRBC Flagged by Analyzer 0 % (0-5); Neutrophil # 6.77 X10^3/uL (2.7-7.7); Neutrophil % 59.1 % (47-70); Platelet Count 324 K/mm3 (150-450); RBC Distribution Width CV 13.2 % (11.6-14.6); RBC Distribution Width SD 38.5 fl (35.1-43.9); Red Blood Count 5.22 M/mm3 (4.6-6.2); White Blood Count 11.5 K/mm3 (4.4-11.0)
[2022-04-26 16:47] LABS: AST(SGOT) 31 U/L (15-37); Alanine Aminotransfer ALT/SGPT 37 U/L (16-61); Albumin, Serum 3.9 g/dL (3.2-5.0); Alkaline Phosphatase 179 U/L (45-117); Anion Gap 5 (5-15); BUN 17 mg/dL (7-18); BUN/Creat Ratio 15.6 RATIO (10-20); Calcium,Total 9.1 mg/dL (8.5-10.1); Chloride 104 mmol/L (98-107); Creatinine, Serum 1.09 mg/dL (0.70-1.30); EST Glomerular Filtration Rate 74 mL/min (>60); Est Glom Filt Rate - Afr Amer 89 mL/min (>60); Glucose 229 mg/dL (74-106); Potassium 3.8 mmol/L (3.5-5.1); Protein, Total 7.9 g/dL (6.4-8.2); Sodium Level 138 mmol/L (136-145)
== END | disposition home or self-care (01) ==
LOC: LAB 15:44
PROVIDERS: PCP Family Medicine
DX: M86.9 Osteomyelitis, unspecified (principal)
CPT/HCPCS: 36415; 80053; 85025

== ENCOUNTER 2024-12-24 11:51 | Outpatient (CLI) | payer OTHER, SELFPAY ==
--- NOTE | 2024-12-24 12:30 | MRI_ITS ---
EXAM: MRI cervical spine without contrast. CLINICAL HISTORY: Neck pain COMPARISON: None TECHNIQUE: Multiplanar multisequence MRI of the cervical spine without contrast. FINDINGS: Mild reversal of the cervical lordosis. Postoperative changes C4-C6 ACDF and laminectomy with complete osseous fusion. Vertebral body heights are maintained. Remainder of the disc spaces are within normal limits. Atlantoaxial interval is within normal limits.. No evidence of compression fracture. The bone marrow signal is unremarkable. Cervicomedullary junction is unremarkable. Cervical cord is normal in caliber and signal intensity. No abnormal cord signal. Prevertebral soft tissues are unremarkable 13 mm right thyroid lobe mixed cystic and solid lesion (series 10, image 90). Disc Spaces: C2-3: Small disc osteophyte complex, mild uncinate hypertrophy and mild facet degenerative changes without significant canal stenosis. Mild left neural foraminal narrowing. Left neural foramen is patent. C3-4: Small disc osteophyte complex, facet degenerative changes and uncinate hypertrophy without significant canal stenosis. Moderate bilateral neural foraminal narrowing.. C4-5: Mild uncinate hypertrophy and facet degenerative changes. No significant canal stenosis. Mild bilateral neural foraminal narrowing. C5-6: No significant disc contour abnormality. No significant spinal canal stenosis or foraminal stenosis. C6-7: [id number]-[id number]-right uncinate hypertrophy and facet degenerative changes. No significant canal stenosis. Moderate left neural foraminal narrowing. Right neural foramen is patent.. C7-T1: No significant disc contour abnormality. No significant spinal canal stenosis or foraminal stenosis. MRI/Spine Cervical (Routine) IMPRESSION: 1. Postoperative changes C4-C6 ACDF and laminectomy. 2. No acute fracture or traumatic subluxation. 3. Multilevel degenerative changes without significant canal stenosis and up to moderate neural foraminal narrowing, most prominent at C3-C4. Reading Location: [facility]
== END 2024-12-24 23:59 | disposition home or self-care (01) ==
LOC: MRI 11:54
PROVIDERS: PCP Family Medicine
DX: M54.2 Cervicalgia (principal)
CPT/HCPCS: 72141